=== PATIENT | male | born 1930 | race Caucasian/White ===

== ENCOUNTER → 2017-01-15 | Outpatient (CLI) | payer MEDICARE ==
[~2017-01-15] MED LIST: ASPI-808 PO; ASPI-983 PO; ATOR10TA PO; CLIN-80 PO; CLOP75TA28 PO; CLOP75TA69 PO; CYAN500T2 PO; FAMO20TA5 PO; GABA-488 PO; GBPN300C PO; GLIP-173 PO; GLIP10TA13 PO; HYDR-3714 PO; LISI-552 PO; LISI10TA PO; LRT10T PO; METF-478 PO; METF500T4 PO; METF500T8 PO; MINO50CA2 PO; MTF500T PO; MULT1TAB69 PO; OMG1KC PO
[2017-01-15 10:46] LABS: ALANINE AMINOTRANSFERASE 16 U/L (0-55); ALBUMIN 3.8 GM/DL (3.2-4.5); ANION GAP 8 MMOL/L (5-14); ASPARTATE AMINO TRANSFERASE 13 U/L (5-34); BILIRUBIN,TOTAL 1.1 MG/DL (0.1-1.0); BLOOD UREA NITROGEN 27 MG/DL (7-18); BUN/CREATININE RATIO 28; CALCIUM 9.3 MG/DL (8.5-10.1); CARBON DIOXIDE 27 MMOL/L (21-32); CHLORIDE 104 MMOL/L (98-107); CREATININE SERUM 0.98 MG/DL (0.60-1.30); GFR ESTIMATED > 60; GLUCOSE 98 MG/DL (70-105); POTASSIUM 4.6 MMOL/L (3.6-5.0); SODIUM 139 MMOL/L (135-145); TOTAL PROTEIN 6.8 GM/DL (6.4-8.2)
== END ==
LOC: LAB 09:38
PROVIDERS: ATTEND Family Medicine
DX: E11.621 Type 2 diabetes mellitus with foot ulcer (principal)
CPT/HCPCS: 36415; 80053; 83036

== ENCOUNTER 2017-01-22 09:20 | Outpatient (RCR) | payer MEDICARE ==
[2016-10-28 14:29] LABS: BASOPHILS # (AUTO) 0.2 10^3/uL (0.0-0.1); BASOPHILS % (AUTO) 1 % (0-10); EOSINOPHILS # (AUTO) 0.3 10^3/uL (0.0-0.3); EOSINOPHILS % (AUTO) 2 % (0-10); LYMPHOCYTES # (AUTO) 1.8 X 10^3 (1.0-4.0); LYMPHOCYTES % (AUTO) 14 % (12-44); MEAN CORPUSCULAR HEMOGLOBIN 32 PG (25-34); MEAN CORPUSCULAR HGB CONC 34 G/DL (32-36); MEAN CORPUSCULAR VOLUME 93 FL (80-99); MEAN PLATELET VOLUME 9.4 FL (7.4-10.4); MONOCYTES % (AUTO) 8 % (0-12); NEUTROPHILS # (AUTO) 10.1 X 10^3 (1.8-7.8); NEUTROPHILS % (AUTO) 76 % (42-75); PLATELET COUNT 474 10^3/uL (130-400); RED BLOOD COUNT 5.74 10^6/uL (4.35-5.85); RED CELL DISTRIBUTION WIDTH 14.9 % (10.0-14.5); RETICULOCYTE % 2.19 % (0.50-2.40); WHITE BLOOD COUNT 13.5 10^3/uL (4.3-11.0)
[2016-10-28 15:39] LABS: ALANINE AMINOTRANSFERASE 16 U/L (0-55); ALBUMIN 3.9 G/DL (3.2-4.5); ANION GAP 10 MMOL/L (5-14); ASPARTATE AMINO TRANSFERASE 15 U/L (5-34); BILIRUBIN,TOTAL 0.8 MG/DL (0.1-1.0); BLOOD UREA NITROGEN 21 MG/DL (7-18); BUN/CREATININE RATIO 18; CALCIUM 9.6 MG/DL (8.5-10.1); CARBON DIOXIDE 24 MMOL/L (21-32); CHLORIDE 105 MMOL/L (98-107); CREATININE SERUM 1.14 MG/DL (0.60-1.30); GFR ESTIMATED > 60; GLUCOSE 220 MG/DL (70-105); LACTATE DEHYDROGENASE 264 U/L (125-220); POTASSIUM 4.7 MMOL/L (3.6-5.0); SODIUM 139 MMOL/L (135-145); TOTAL PROTEIN 6.8 G/DL (6.4-8.2)
[2016-10-28 16:43] LABS: %SAT TOTAL IRON BINDING CAPIC 35 % (15-50); TIBC 254 ug/dL (280-380)
[2016-10-29 08:04] LABS: UIBC 166 ug/dL (55-450)
[2016-10-30 07:55] LABS: CLINICAL IND D72.829 D58.2
[2016-11-03 08:03] LABS: JAK2 MUTATION Detected
[2016-11-03 08:12] LABS: BCR ABL FISH QL SEE FOOTNOTE
[2016-11-20 13:54] LABS: BASOPHILS # (AUTO) 0.3 10^3/uL (0.0-0.1); BASOPHILS % (AUTO) 2 % (0-10); EOSINOPHILS # (AUTO) 0.3 10^3/uL (0.0-0.3); EOSINOPHILS % (AUTO) 3 % (0-10); LYMPHOCYTES # (AUTO) 1.9 X 10^3 (1.0-4.0); LYMPHOCYTES % (AUTO) 15 % (12-44); MEAN CORPUSCULAR HEMOGLOBIN 32 PG (25-34); MEAN CORPUSCULAR HGB CONC 34 G/DL (32-36); MEAN CORPUSCULAR VOLUME 94 FL (80-99); MEAN PLATELET VOLUME 9.5 FL (7.4-10.4); MONOCYTES # (AUTO) 1.1 X 10^3 (0.0-1.0); MONOCYTES % (AUTO) 9 % (0-12); NEUTROPHILS # (AUTO) 9.2 X 10^3 (1.8-7.8); NEUTROPHILS % (AUTO) 72 % (42-75); PLATELET COUNT 414 10^3/uL (130-400); RED BLOOD COUNT 5.26 10^6/uL (4.35-5.85); RED CELL DISTRIBUTION WIDTH 14.6 % (10.0-14.5); WHITE BLOOD COUNT 12.9 10^3/uL (4.3-11.0)
[2016-11-20 13:55] LABS: RETICULOCYTE % 2.44 % (0.50-2.40)
[2016-11-20 14:56] LABS: BAND NEUTROPHILS 1 %; BASOPHILS % (MANUAL) 0 %; EOSINOPHILS % (MANUAL) 3 %; LYMPHOCYTES % (MANUAL) 12 %; NEUTROPHILS % (MANUAL) 78 %; REACTIVE LYMPHOCYTES 1 %
[2016-12-03 13:32] LABS: BASOPHILS # (AUTO) 0.2 10^3/uL (0.0-0.1); BASOPHILS % (AUTO) 2 % (0-10); EOSINOPHILS # (AUTO) 0.3 10^3/uL (0.0-0.3); EOSINOPHILS % (AUTO) 3 % (0-10); LYMPHOCYTES # (AUTO) 1.9 X 10^3 (1.0-4.0); LYMPHOCYTES % (AUTO) 16 % (12-44); MEAN CORPUSCULAR HEMOGLOBIN 31 PG (25-34); MEAN CORPUSCULAR HGB CONC 33 G/DL (32-36); MEAN CORPUSCULAR VOLUME 94 FL (80-99); MEAN PLATELET VOLUME 9.7 FL (7.4-10.4); MONOCYTES % (AUTO) 8 % (0-12); NEUTROPHILS # (AUTO) 8.6 X 10^3 (1.8-7.8); NEUTROPHILS % (AUTO) 71 % (42-75); PLATELET COUNT 387 10^3/uL (130-400); RED BLOOD COUNT 5.59 10^6/uL (4.35-5.85); RED CELL DISTRIBUTION WIDTH 14.7 % (10.0-14.5); RETICULOCYTE % 2.76 % (0.50-2.40)
[2016-12-10 08:41] LABS: BASOPHILS # (AUTO) 0.2 10^3/uL (0.0-0.1); BASOPHILS % (AUTO) 2 % (0-10); EOSINOPHILS # (AUTO) 0.3 10^3/uL (0.0-0.3); EOSINOPHILS % (AUTO) 2 % (0-10); LYMPHOCYTES # (AUTO) 2.1 X 10^3 (1.0-4.0); LYMPHOCYTES % (AUTO) 17 % (12-44); MEAN CORPUSCULAR HEMOGLOBIN 32 PG (25-34); MEAN CORPUSCULAR HGB CONC 34 G/DL (32-36); MEAN CORPUSCULAR VOLUME 94 FL (80-99); MEAN PLATELET VOLUME 9.4 FL (7.4-10.4); MONOCYTES # (AUTO) 0.9 X 10^3 (0.0-1.0); MONOCYTES % (AUTO) 8 % (0-12); NEUTROPHILS # (AUTO) 8.7 X 10^3 (1.8-7.8); NEUTROPHILS % (AUTO) 72 % (42-75); PLATELET COUNT 404 10^3/uL (130-400); RED BLOOD COUNT 5.46 10^6/uL (4.35-5.85); RED CELL DISTRIBUTION WIDTH 14.9 % (10.0-14.5); WHITE BLOOD COUNT 12.1 10^3/uL (4.3-11.0)
[2016-12-17 09:55] LABS: BASOPHILS # (AUTO) 0.2 10^3/uL (0.0-0.1); BASOPHILS % (AUTO) 2 % (0-10); EOSINOPHILS # (AUTO) 0.2 10^3/uL (0.0-0.3); EOSINOPHILS % (AUTO) 2 % (0-10); LYMPHOCYTES # (AUTO) 1.6 X 10^3 (1.0-4.0); LYMPHOCYTES % (AUTO) 13 % (12-44); MEAN CORPUSCULAR HEMOGLOBIN 32 PG (25-34); MEAN CORPUSCULAR HGB CONC 34 G/DL (32-36); MEAN CORPUSCULAR VOLUME 95 FL (80-99); MEAN PLATELET VOLUME 9.4 FL (7.4-10.4); MONOCYTES # (AUTO) 0.8 X 10^3 (0.0-1.0); MONOCYTES % (AUTO) 7 % (0-12); NEUTROPHILS # (AUTO) 9.3 X 10^3 (1.8-7.8); NEUTROPHILS % (AUTO) 77 % (42-75); PLATELET COUNT 341 10^3/uL (130-400); RED BLOOD COUNT 5.35 10^6/uL (4.35-5.85); RED CELL DISTRIBUTION WIDTH 15.4 % (10.0-14.5); WHITE BLOOD COUNT 12.1 10^3/uL (4.3-11.0)
[2016-12-24 10:04] LABS: BASOPHILS # (AUTO) 0.2 10^3/uL (0.0-0.1); BASOPHILS % (AUTO) 2 % (0-10); EOSINOPHILS # (AUTO) 0.3 10^3/uL (0.0-0.3); EOSINOPHILS % (AUTO) 3 % (0-10); LYMPHOCYTES # (AUTO) 1.7 X 10^3 (1.0-4.0); LYMPHOCYTES % (AUTO) 18 % (12-44); MEAN CORPUSCULAR HEMOGLOBIN 33 PG (25-34); MEAN CORPUSCULAR HGB CONC 34 G/DL (32-36); MEAN CORPUSCULAR VOLUME 96 FL (80-99); MONOCYTES # (AUTO) 0.6 X 10^3 (0.0-1.0); MONOCYTES % (AUTO) 7 % (0-12); NEUTROPHILS # (AUTO) 6.6 X 10^3 (1.8-7.8); NEUTROPHILS % (AUTO) 70 % (42-75); PLATELET COUNT 313 10^3/uL (130-400); RED BLOOD COUNT 5.33 10^6/uL (4.35-5.85); RED CELL DISTRIBUTION WIDTH 16.6 % (10.0-14.5); WHITE BLOOD COUNT 9.3 10^3/uL (4.3-11.0)
[2017-01-01 15:02] LABS: BASOPHILS # (AUTO) 0.2 10^3/uL (0.0-0.1); BASOPHILS % (AUTO) 2 % (0-10); EOSINOPHILS # (AUTO) 0.2 10^3/uL (0.0-0.3); EOSINOPHILS % (AUTO) 2 % (0-10); LYMPHOCYTES % (AUTO) 22 % (12-44); MEAN CORPUSCULAR HEMOGLOBIN 32 PG (25-34); MEAN CORPUSCULAR HGB CONC 34 G/DL (32-36); MEAN CORPUSCULAR VOLUME 96 FL (80-99); MONOCYTES # (AUTO) 0.7 X 10^3 (0.0-1.0); MONOCYTES % (AUTO) 8 % (0-12); NEUTROPHILS # (AUTO) 5.9 X 10^3 (1.8-7.8); NEUTROPHILS % (AUTO) 66 % (42-75); PLATELET COUNT 248 10^3/uL (130-400); RED BLOOD COUNT 5.34 10^6/uL (4.35-5.85); RED CELL DISTRIBUTION WIDTH 18.1 % (10.0-14.5); RETICULOCYTE % 1.47 % (0.50-2.40)
[2017-01-01 15:28] LABS: ANION GAP 7 MMOL/L (5-14); BLOOD UREA NITROGEN 20 MG/DL (7-18); BUN/CREATININE RATIO 22; CALCIUM 9.4 MG/DL (8.5-10.1); CARBON DIOXIDE 25 MMOL/L (21-32); CHLORIDE 106 MMOL/L (98-107); CREATININE SERUM 0.93 MG/DL (0.60-1.30); GFR ESTIMATED > 60; GLUCOSE 197 MG/DL (70-105); POTASSIUM 4.5 MMOL/L (3.6-5.0); SODIUM 138 MMOL/L (135-145); URIC ACID 4.8 MG/DL (2.6-7.2)
[2017-01-08 10:20] LABS: BASOPHILS # (AUTO) 0.2 10^3/uL (0.0-0.1); BASOPHILS % (AUTO) 2 % (0-10); EOSINOPHILS # (AUTO) 0.2 10^3/uL (0.0-0.3); EOSINOPHILS % (AUTO) 2 % (0-10); LYMPHOCYTES # (AUTO) 1.8 X 10^3 (1.0-4.0); LYMPHOCYTES % (AUTO) 24 % (12-44); MEAN CORPUSCULAR HEMOGLOBIN 33 PG (25-34); MEAN CORPUSCULAR HGB CONC 34 G/DL (32-36); MEAN CORPUSCULAR VOLUME 98 FL (80-99); MEAN PLATELET VOLUME 9.1 FL (7.4-10.4); MONOCYTES # (AUTO) 0.6 X 10^3 (0.0-1.0); MONOCYTES % (AUTO) 7 % (0-12); NEUTROPHILS % (AUTO) 65 % (42-75); PLATELET COUNT 241 10^3/uL (130-400); RED BLOOD COUNT 4.97 10^6/uL (4.35-5.85); RED CELL DISTRIBUTION WIDTH 18.7 % (10.0-14.5); WHITE BLOOD COUNT 7.8 10^3/uL (4.3-11.0)
[2017-01-15 09:37] LABS: BASOPHILS # (AUTO) 0.1 10^3/uL (0.0-0.1); BASOPHILS % (AUTO) 2 % (0-10); EOSINOPHILS # (AUTO) 0.1 10^3/uL (0.0-0.3); EOSINOPHILS % (AUTO) 2 % (0-10); LYMPHOCYTES % (AUTO) 28 % (12-44); MEAN CORPUSCULAR HEMOGLOBIN 35 PG (25-34); MEAN CORPUSCULAR HGB CONC 35 G/DL (32-36); MEAN CORPUSCULAR VOLUME 98 FL (80-99); MEAN PLATELET VOLUME 9.2 FL (7.4-10.4); MONOCYTES # (AUTO) 0.3 X 10^3 (0.0-1.0); MONOCYTES % (AUTO) 5 % (0-12); NEUTROPHILS # (AUTO) 4.4 X 10^3 (1.8-7.8); NEUTROPHILS % (AUTO) 63 % (42-75); PLATELET COUNT 177 10^3/uL (130-400); RED BLOOD COUNT 4.58 10^6/uL (4.35-5.85); RED CELL DISTRIBUTION WIDTH 18.7 % (10.0-14.5); WHITE BLOOD COUNT 6.9 10^3/uL (4.3-11.0)
[2017-01-22 09:34] LABS: BASOPHILS # (AUTO) 0.1 10^3/uL (0.0-0.1); BASOPHILS % (AUTO) 1 % (0-10); EOSINOPHILS # (AUTO) 0.1 10^3/uL (0.0-0.3); EOSINOPHILS % (AUTO) 2 % (0-10); LYMPHOCYTES # (AUTO) 1.3 X 10^3 (1.0-4.0); LYMPHOCYTES % (AUTO) 23 % (12-44); MEAN CORPUSCULAR HEMOGLOBIN 35 PG (25-34); MEAN CORPUSCULAR HGB CONC 36 G/DL (32-36); MEAN CORPUSCULAR VOLUME 98 FL (80-99); MEAN PLATELET VOLUME 9.8 FL (7.4-10.4); MONOCYTES # (AUTO) 0.2 X 10^3 (0.0-1.0); MONOCYTES % (AUTO) 3 % (0-12); NEUTROPHILS # (AUTO) 3.8 X 10^3 (1.8-7.8); NEUTROPHILS % (AUTO) 71 % (42-75); PLATELET COUNT 93 10^3/uL (130-400); RED BLOOD COUNT 4.16 10^6/uL (4.35-5.85); RED CELL DISTRIBUTION WIDTH 18.3 % (10.0-14.5); WHITE BLOOD COUNT 5.4 10^3/uL (4.3-11.0)
== END 2017-01-26 | disposition home or self-care (01) ==
LOC: ONC 09:20
PROVIDERS: ATTEND Internal Medicine Hematology & Oncology
DX: D72.829 Elevated white blood cell count, unspecified (principal); D58.2 Other hemoglobinopathies; E11.9 Type 2 diabetes mellitus without complications; Z79.84 Long term (current) use of oral hypoglycemic drugs
CPT/HCPCS: 36415; 38221; 80048; 80053; 81270; 82668; 82728; 83540; 83615; 84550; 85007; 85025; 85027; 85045; 88184; 88185; 88305; 88311; 88313; 88368; 88369; 99195; 99213; 99214

== ENCOUNTER 2017-03-19 09:25 | Outpatient (RCR) | payer MEDICARE ==
[2017-01-29 09:53] LABS: BASOPHILS % (AUTO) 1 % (0-10); EOSINOPHILS # (AUTO) 0.1 10^3/uL (0.0-0.3); EOSINOPHILS % (AUTO) 3 % (0-10); LYMPHOCYTES # (AUTO) 1.3 X 10^3 (1.0-4.0); LYMPHOCYTES % (AUTO) 33 % (12-44); MEAN CORPUSCULAR HEMOGLOBIN 35 PG (25-34); MEAN CORPUSCULAR HGB CONC 35 G/DL (32-36); MEAN CORPUSCULAR VOLUME 99 FL (80-99); MEAN PLATELET VOLUME 8.7 FL (7.4-10.4); MONOCYTES # (AUTO) 0.2 X 10^3 (0.0-1.0); MONOCYTES % (AUTO) 4 % (0-12); NEUTROPHILS # (AUTO) 2.3 X 10^3 (1.8-7.8); NEUTROPHILS % (AUTO) 60 % (42-75); PLATELET COUNT 63 10^3/uL (130-400); RED BLOOD COUNT 3.56 10^6/uL (4.35-5.85); WHITE BLOOD COUNT 3.9 10^3/uL (4.3-11.0)
[2017-02-06 10:59] LABS: BASOPHILS % (AUTO) 0 % (0-10); EOSINOPHILS # (AUTO) 0.1 10^3/uL (0.0-0.3); EOSINOPHILS % (AUTO) 2 % (0-10); LYMPHOCYTES # (AUTO) 1.4 X 10^3 (1.0-4.0); LYMPHOCYTES % (AUTO) 36 % (12-44); MEAN CORPUSCULAR HEMOGLOBIN 35 PG (25-34); MEAN CORPUSCULAR HGB CONC 35 G/DL (32-36); MEAN CORPUSCULAR VOLUME 101 FL (80-99); MEAN PLATELET VOLUME 8.5 FL (7.4-10.4); MONOCYTES # (AUTO) 0.2 X 10^3 (0.0-1.0); MONOCYTES % (AUTO) 5 % (0-12); NEUTROPHILS # (AUTO) 2.2 X 10^3 (1.8-7.8); NEUTROPHILS % (AUTO) 57 % (42-75); PLATELET COUNT 116 10^3/uL (130-400); RED CELL DISTRIBUTION WIDTH 18.5 % (10.0-14.5); WHITE BLOOD COUNT 3.9 10^3/uL (4.3-11.0)
[2017-02-06 11:21] LABS: ALANINE AMINOTRANSFERASE 25 U/L (0-55); ALBUMIN 3.5 GM/DL (3.2-4.5); ANION GAP 7 MMOL/L (5-14); ASPARTATE AMINO TRANSFERASE 15 U/L (5-34); BILIRUBIN,TOTAL 0.7 MG/DL (0.1-1.0); BLOOD UREA NITROGEN 18 MG/DL (7-18); BUN/CREATININE RATIO 18; CALCIUM 8.9 MG/DL (8.5-10.1); CARBON DIOXIDE 26 MMOL/L (21-32); CHLORIDE 107 MMOL/L (98-107); GFR ESTIMATED > 60; GLUCOSE 158 MG/DL (70-105); LACTATE DEHYDROGENASE 166 U/L (125-220); SODIUM 140 MMOL/L (135-145); TOTAL PROTEIN 6.2 GM/DL (6.4-8.2)
[2017-02-12 10:03] LABS: BASOPHILS % (AUTO) 0 % (0-10); EOSINOPHILS # (AUTO) 0.1 10^3/uL (0.0-0.3); EOSINOPHILS % (AUTO) 1 % (0-10); LYMPHOCYTES # (AUTO) 1.5 X 10^3 (1.0-4.0); LYMPHOCYTES % (AUTO) 38 % (12-44); MEAN CORPUSCULAR HEMOGLOBIN 36 PG (25-34); MEAN CORPUSCULAR HGB CONC 36 G/DL (32-36); MEAN CORPUSCULAR VOLUME 102 FL (80-99); MEAN PLATELET VOLUME 7.9 FL (7.4-10.4); MONOCYTES # (AUTO) 0.4 X 10^3 (0.0-1.0); MONOCYTES % (AUTO) 11 % (0-12); NEUTROPHILS % (AUTO) 50 % (42-75); PLATELET COUNT 198 10^3/uL (130-400); RED BLOOD COUNT 3.19 10^6/uL (4.35-5.85); RED CELL DISTRIBUTION WIDTH 19.2 % (10.0-14.5)
[2017-02-19 10:14] LABS: BASOPHILS % (AUTO) 0 % (0-10); EOSINOPHILS % (AUTO) 1 % (0-10); LYMPHOCYTES # (AUTO) 1.6 X 10^3 (1.0-4.0); LYMPHOCYTES % (AUTO) 34 % (12-44); MEAN CORPUSCULAR HEMOGLOBIN 37 PG (25-34); MEAN CORPUSCULAR HGB CONC 35 G/DL (32-36); MEAN CORPUSCULAR VOLUME 104 FL (80-99); MEAN PLATELET VOLUME 8.7 FL (7.4-10.4); MONOCYTES # (AUTO) 0.5 X 10^3 (0.0-1.0); MONOCYTES % (AUTO) 12 % (0-12); NEUTROPHILS # (AUTO) 2.5 X 10^3 (1.8-7.8); NEUTROPHILS % (AUTO) 54 % (42-75); PLATELET COUNT 208 10^3/uL (130-400); RED BLOOD COUNT 3.05 10^6/uL (4.35-5.85); WHITE BLOOD COUNT 4.7 10^3/uL (4.3-11.0)
[2017-02-26 10:02] LABS: BASOPHILS % (AUTO) 0 % (0-10); EOSINOPHILS # (AUTO) 0.1 10^3/uL (0.0-0.3); EOSINOPHILS % (AUTO) 1 % (0-10); LYMPHOCYTES # (AUTO) 1.9 X 10^3 (1.0-4.0); LYMPHOCYTES % (AUTO) 31 % (12-44); MEAN CORPUSCULAR HEMOGLOBIN 37 PG (25-34); MEAN CORPUSCULAR HGB CONC 35 G/DL (32-36); MEAN CORPUSCULAR VOLUME 106 FL (80-99); MEAN PLATELET VOLUME 9.2 FL (7.4-10.4); MONOCYTES # (AUTO) 0.7 X 10^3 (0.0-1.0); MONOCYTES % (AUTO) 11 % (0-12); NEUTROPHILS # (AUTO) 3.6 X 10^3 (1.8-7.8); NEUTROPHILS % (AUTO) 57 % (42-75); PLATELET COUNT 203 10^3/uL (130-400); RED CELL DISTRIBUTION WIDTH 19.4 % (10.0-14.5); WHITE BLOOD COUNT 6.3 10^3/uL (4.3-11.0)
[2017-03-11 15:36] LABS: BASOPHILS % (AUTO) 0 % (0-10); EOSINOPHILS # (AUTO) 0.1 10^3/uL (0.0-0.3); EOSINOPHILS % (AUTO) 1 % (0-10); LYMPHOCYTES # (AUTO) 1.9 X 10^3 (1.0-4.0); LYMPHOCYTES % (AUTO) 27 % (12-44); MEAN CORPUSCULAR HEMOGLOBIN 39 PG (25-34); MEAN CORPUSCULAR HGB CONC 35 G/DL (32-36); MEAN CORPUSCULAR VOLUME 109 FL (80-99); MEAN PLATELET VOLUME 8.8 FL (7.4-10.4); MONOCYTES # (AUTO) 0.7 X 10^3 (0.0-1.0); MONOCYTES % (AUTO) 11 % (0-12); NEUTROPHILS # (AUTO) 4.2 X 10^3 (1.8-7.8); NEUTROPHILS % (AUTO) 61 % (42-75); PLATELET COUNT 158 10^3/uL (130-400); RED BLOOD COUNT 3.19 10^6/uL (4.35-5.85); RED CELL DISTRIBUTION WIDTH 17.2 % (10.0-14.5)
[2017-03-11 15:53] LABS: ALANINE AMINOTRANSFERASE 18 U/L (0-55); ALBUMIN 3.9 GM/DL (3.2-4.5); ANION GAP 5 MMOL/L (5-14); ASPARTATE AMINO TRANSFERASE 12 U/L (5-34); BILIRUBIN,TOTAL 0.8 MG/DL (0.1-1.0); BLOOD UREA NITROGEN 25 MG/DL (7-18); BUN/CREATININE RATIO 23; CALCIUM 9.2 MG/DL (8.5-10.1); CARBON DIOXIDE 28 MMOL/L (21-32); CHLORIDE 107 MMOL/L (98-107); CREATININE SERUM 1.08 MG/DL (0.60-1.30); GFR ESTIMATED > 60; GLUCOSE 190 MG/DL (70-105); LACTATE DEHYDROGENASE 165 U/L (125-220); POTASSIUM 5.1 MMOL/L (3.6-5.0); SODIUM 140 MMOL/L (135-145); TOTAL PROTEIN 6.9 GM/DL (6.4-8.2)
[2017-03-19 09:39] LABS: BASOPHILS % (AUTO) 0 % (0-10); EOSINOPHILS # (AUTO) 0.1 10^3/uL (0.0-0.3); EOSINOPHILS % (AUTO) 2 % (0-10); LYMPHOCYTES % (AUTO) 28 % (12-44); MEAN CORPUSCULAR HEMOGLOBIN 39 PG (25-34); MEAN CORPUSCULAR HGB CONC 35 G/DL (32-36); MEAN CORPUSCULAR VOLUME 112 FL (80-99); MEAN PLATELET VOLUME 8.5 FL (7.4-10.4); MONOCYTES # (AUTO) 0.6 X 10^3 (0.0-1.0); MONOCYTES % (AUTO) 9 % (0-12); NEUTROPHILS # (AUTO) 4.3 X 10^3 (1.8-7.8); NEUTROPHILS % (AUTO) 61 % (42-75); PLATELET COUNT 164 10^3/uL (130-400); RED BLOOD COUNT 2.94 10^6/uL (4.35-5.85); RED CELL DISTRIBUTION WIDTH 15.4 % (10.0-14.5); WHITE BLOOD COUNT 7.1 10^3/uL (4.3-11.0)
== END 2017-03-28 | disposition home or self-care (01) ==
LOC: ONC 09:25
PROVIDERS: ATTEND Internal Medicine Hematology & Oncology
DX: D45 Polycythemia vera (principal); E11.9 Type 2 diabetes mellitus without complications; Z79.84 Long term (current) use of oral hypoglycemic drugs; Z79.899 Other long term (current) drug therapy
CPT/HCPCS: 36415; 80053; 83615; 85025; 99213

== ENCOUNTER 2017-06-25 09:33 | Outpatient (RCR) | payer MEDICARE ==
[2017-04-02 09:51] LABS: BASOPHILS % (AUTO) 0 % (0-10); EOSINOPHILS # (AUTO) 0.1 10^3/uL (0.0-0.3); EOSINOPHILS % (AUTO) 2 % (0-10); HEMATOCRIT 34 % (40-54); LYMPHOCYTES % (AUTO) 29 % (12-44); MEAN CORPUSCULAR HEMOGLOBIN 40 PG (25-34); MEAN CORPUSCULAR HGB CONC 36 G/DL (32-36); MEAN CORPUSCULAR VOLUME 113 FL (80-99); MONOCYTES # (AUTO) 0.6 X 10^3 (0.0-1.0); MONOCYTES % (AUTO) 8 % (0-12); NEUTROPHILS # (AUTO) 4.2 X 10^3 (1.8-7.8); NEUTROPHILS % (AUTO) 61 % (42-75); PLATELET COUNT 169 10^3/uL (130-400); RED BLOOD COUNT 2.99 10^6/uL (4.35-5.85); RED CELL DISTRIBUTION WIDTH 12.5 % (10.0-14.5)
[2017-04-30 09:46] LABS: BASOPHILS % (AUTO) 1 % (0-10); EOSINOPHILS # (AUTO) 0.1 10^3/uL (0.0-0.3); EOSINOPHILS % (AUTO) 1 % (0-10); HEMATOCRIT 37 % (40-54); HEMOGLOBIN 13.4 G/DL (13.3-17.7); LYMPHOCYTES # (AUTO) 1.8 X 10^3 (1.0-4.0); LYMPHOCYTES % (AUTO) 27 % (12-44); MEAN CORPUSCULAR HEMOGLOBIN 40 PG (25-34); MEAN CORPUSCULAR HGB CONC 36 G/DL (32-36); MEAN CORPUSCULAR VOLUME 110 FL (80-99); MONOCYTES # (AUTO) 0.6 X 10^3 (0.0-1.0); MONOCYTES % (AUTO) 9 % (0-12); NEUTROPHILS % (AUTO) 62 % (42-75); PLATELET COUNT 207 10^3/uL (130-400); RED BLOOD COUNT 3.35 10^6/uL (4.35-5.85); RED CELL DISTRIBUTION WIDTH 12.7 % (10.0-14.5); WHITE BLOOD COUNT 6.5 10^3/uL (4.3-11.0)
[2017-05-28 11:13] LABS: BASOPHILS % (AUTO) 0 % (0-10); EOSINOPHILS # (AUTO) 0.1 10^3/uL (0.0-0.3); EOSINOPHILS % (AUTO) 2 % (0-10); HEMATOCRIT 38 % (40-54); HEMOGLOBIN 13.6 G/DL (13.3-17.7); LYMPHOCYTES # (AUTO) 2.4 X 10^3 (1.0-4.0); LYMPHOCYTES % (AUTO) 32 % (12-44); MEAN CORPUSCULAR HEMOGLOBIN 39 PG (25-34); MEAN CORPUSCULAR HGB CONC 36 G/DL (32-36); MEAN CORPUSCULAR VOLUME 108 FL (80-99); MEAN PLATELET VOLUME 9.1 FL (7.4-10.4); MONOCYTES # (AUTO) 0.8 X 10^3 (0.0-1.0); MONOCYTES % (AUTO) 10 % (0-12); NEUTROPHILS # (AUTO) 4.2 X 10^3 (1.8-7.8); NEUTROPHILS % (AUTO) 56 % (42-75); PLATELET COUNT 170 10^3/uL (130-400); RED BLOOD COUNT 3.49 10^6/uL (4.35-5.85); RED CELL DISTRIBUTION WIDTH 13.4 % (10.0-14.5); WHITE BLOOD COUNT 7.5 10^3/uL (4.3-11.0)
[2017-05-28 11:30] LABS: ALANINE AMINOTRANSFERASE 19 U/L (0-55); ALBUMIN 3.9 GM/DL (3.2-4.5); ALKALINE PHOSPHATASE 46 U/L (40-136); BILIRUBIN,TOTAL 0.7 MG/DL (0.1-1.0); BUN/CREATININE RATIO 24; CALCIUM 9.5 MG/DL (8.5-10.1); CARBON DIOXIDE 27 MMOL/L (21-32); CHLORIDE 104 MMOL/L (98-107); CREATININE SERUM 0.93 MG/DL (0.60-1.30); GFR ESTIMATED > 60; GLUCOSE 105 MG/DL (70-105); POTASSIUM 4.7 MMOL/L (3.6-5.0); SODIUM 139 MMOL/L (135-145); TOTAL PROTEIN 6.9 GM/DL (6.4-8.2)
[2017-06-25 09:43] LABS: BASOPHILS % (AUTO) 0 % (0-10); EOSINOPHILS # (AUTO) 0.1 10^3/uL (0.0-0.3); EOSINOPHILS % (AUTO) 2 % (0-10); HEMATOCRIT 38 % (40-54); HEMOGLOBIN 13.8 G/DL (13.3-17.7); LYMPHOCYTES # (AUTO) 2.4 X 10^3 (1.0-4.0); LYMPHOCYTES % (AUTO) 29 % (12-44); MEAN CORPUSCULAR HEMOGLOBIN 39 PG (25-34); MEAN CORPUSCULAR HGB CONC 36 G/DL (32-36); MEAN CORPUSCULAR VOLUME 108 FL (80-99); MONOCYTES # (AUTO) 0.8 X 10^3 (0.0-1.0); MONOCYTES % (AUTO) 9 % (0-12); NEUTROPHILS % (AUTO) 60 % (42-75); PLATELET COUNT 190 10^3/uL (130-400); RED BLOOD COUNT 3.51 10^6/uL (4.35-5.85); RED CELL DISTRIBUTION WIDTH 13.4 % (10.0-14.5); WHITE BLOOD COUNT 8.3 10^3/uL (4.3-11.0)
== END 2017-07-01 | disposition home or self-care (01) ==
LOC: ONC 09:33
PROVIDERS: ATTEND Internal Medicine Hematology & Oncology
DX: D45 Polycythemia vera (principal); E11.9 Type 2 diabetes mellitus without complications; Z79.84 Long term (current) use of oral hypoglycemic drugs; Z79.899 Other long term (current) drug therapy
CPT/HCPCS: 36415; 80053; 83615; 85025; 99213

== ENCOUNTER 2017-07-08 11:29 | Outpatient (CLI) | payer MEDICARE ==
[~2017-07-08] VITALS: Ht 182.9 cm; Wt 106.1 kg
[2017-07-08 11:41] VITALS: BP 96/57
[2017-07-08] MEDS ORDERED: GABA-490 PO (11:59)
[2017-07-08] MEDS ORDERED: HYDR500C2 PO (11:59)
== END 2017-07-08 11:55 | disposition home or self-care (01) ==
LOC: PREOP 11:29
PROVIDERS: ATTEND Podiatrist Foot & Ankle Surgery
DX: Z01.818 Encounter for other preprocedural examination (principal); Z11.2 Encounter for screening for other bacterial diseases; L97.529 Non-pressure chronic ulcer of other part of left foot with unspecified severity; M21.6X2 Other acquired deformities of left foot
CPT/HCPCS: 87081

== ENCOUNTER 2017-07-20 08:07 | Day surgery (SDC) | payer MEDICARE ==
[~2017-07-20] VITALS: Ht 182.9 cm; Wt 106.1 kg
[~2017-07-20 08:07] MED LIST changes: +GABA-490 PO; +HYDR500C2 PO
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
[2017-07-20] MEDS ORDERED: BUPIVACAINE 0.5% 30 ML (SENSORCAINE) VIAL ONE (08:23)
[2017-07-20] MEDS ORDERED: DEXAMETHASONE 10 MG/ML (DECADRON) 1 ML VIAL ONE (08:23)
[2017-07-20] MEDS ORDERED: VANCOMYCIN 1 GM/NS 250 ML IVPB IV ONE ×2 (08:30)
[2017-07-20] MEDS ORDERED: CATHETER FLUSH 10 ML SYR IV PRN (08:30)
[2017-07-20] MEDS ORDERED: LACTATED RINGERS 1,000 ML IV PRN (08:59)
[2017-07-20] MEDS ORDERED: VANCOMYCIN INJECTION 1,000 MG in NS (IVPB) 250 ML IV ONE (09:00)
[2017-07-20 09:05] VITALS: BP 117/79
[2017-07-20] MEDS ORDERED: fentaNYL INJECTION 100 MCG/2 ML AMP ONE (09:15)
--- NOTE | 2017-07-20 09:21 | Progress Note-Pre Operative ---
Pre-Operative Progress Note H&P Reviewed The H&P was reviewed, patient examined and no changes noted. Date Seen by Provider: Jul 20, 2017 Time Seen by Provider: 09:20 Date H&P Reviewed: Jul 20, 2017 Time H&P Reviewed: 09:20 Pre-Operative Diagnosis: Exostosis left 3rd metatarsal, Chronic Ulceration left foot ABBY MASCORRO DPM Jul 20, 2017 9:21 am
[2017-07-20] MEDS ORDERED: LIDOCAINE 1% INJ 20 ML (XYLOCAINE) VIAL ONE (09:30)
[2017-07-20] MEDS ORDERED: SILVER SULFADIAZINE 50 GM CREAM ONE (09:38)
[2017-07-20] MEDS ORDERED: ONDANSETRON 4 MG/2 ML (SDV) Z0FRAN ONE (10:07)
[2017-07-20] MEDS ORDERED: PROPOFOL INJECTION 50 ML IV ONE (10:07)
[2017-07-20] MEDS ORDERED: LACTATED RINGERS 1,000 ML IV SCH (10:11)
--- NOTE | 2017-07-20 10:11 | Progress Note-Post Operative ---
Post-Operative Progess Note Surgeon (s)/Instrument Technician Apprentice (s) Surgeon ABBY MASCORRO DPM Instrument Technician Apprentice: none Pre-Operative Diagnosis Exostosis left 3rd metatarsal, Chronic Ulceration left foot Post-Operative Diagnosis Same Procedure & Operative Findings Date of Procedure 07/20/17 Procedure Performed/Findings Exostectomy left foot Anesthesia Type MAC Estimated Blood Loss Estimated blood loss (mL): Minimal Specimens/Packing Specimens Removed None ABBY MASCORRO DPM Jul 20, 2017 10:11 am
[2017-07-20] MEDS ORDERED: HYDROcodone/APAP 5 MG/325 MG (LORTAB) TAB PO PRN (10:15)
[2017-07-20] MEDS ORDERED: ONDANSETRON 4 MG/2 ML (SDV) Z0FRAN IVP PRN (10:30)
[2017-07-20] MEDS ORDERED: morphine INJ 10 MG/ML 1ML (SYR OR VIAL) IVP PRN (10:30)
[2017-07-20] MEDS ORDERED: MEPERIDINE (DEMEROL) INJ 50 MG/ML IVP PRN (10:30)
[2017-07-20 10:40] VITALS: BP 124/85
[2017-07-20] MEDS ORDERED: SILV20CR14 TP (10:48)
[2017-07-20 11:10] VITALS: BP 122/95
[2017-07-20 11:30] VITALS: BP 122/95
--- NOTE | 2017-07-20 11:43 | Physical Therapy Ortho Eval ---
PT Orthopedic Evaluation Type of Surgery Prior Level of Function Current Living Status: Spouse Locomotion (Upon Admit): Front Wheeled Walker Established Durable Medical Eq: Front Wheeled Walker Subjective Subjective PT discussed with patient and family on PWB left foot. Entry Into Home: Stairs With Railing Steps Into Home: 4 Steps Accessories: Railing Present Motor Control Motor Control: Motor Control WNL ROM ROM: WFL, except focal deficit Strength Strength: WFL Transfer Transfers (B, C, W/C) (FIM): 6 Gait Gait Assistive Device: FWW Right Lower Extremity: Right Weight Bearing Status RLE: Full Weight Bearing Left Lower Extremity: Left Weight Bearing Status LLE: Partial Weight Bearing Difficulty maintaining PWB left foot. Boot Dr. Chung issued patient is too small with dressing in place. Dr. Chung called and PT placed a surgical shoe on patient and instructed family to place boot on patient after dressing is removed. Gait (FIM): 2 Distance (FIM): 1=045-23 ft Distance: 75' Gait Level of Assist: 5 Summary/Comments difficulty maintaining PWB left foot, trunk flexed posture with FWW with ambulation Treatment Rendered Treatment: Gait Train, Step Train Assessment/Goals Goal Time Frame: 1 Visit Understands HEP: Yes Safe Ambulation: Yes Plan Treatment Plan: Discharge PT/Family Agrees to Plan: Yes Time Time In: 1102 Time Out: 1125 Total Billed Treatment Time: 23 Billed Treatment Time 1 visit EVHighC 23 min PT/OT Therapy GCodes Therapy Functional Limitation: Physical Therapy Test(s)/Tool used to determine: Level of Assistance Scale Functional Limitation-Current Charge Code: MOBCUR Modifier: CI Functional Limitation-Goal Charge Code: MOBGOAL Modifier: CI Functional Limitation-D/C Charge Codes: MOBDC Modifier: CI LEWIS OROZCO PT Jul 20, 2017 11:43
--- NOTE | 2017-07-20 13:06 | OPERATIVE REPORT ---
DATE OF SERVICE: 07/20/2017 SURGEON: Ling Mascorro DPM PREOPERATIVE DIAGNOSES: 1. Exostosis, left third metatarsal. 2. History of transmetatarsal amputation, left foot. 3. Chronic ulceration, left third metatarsal area. 4. Equinus. POSTOPERATIVE DIAGNOSES: 1. Exostosis, left third metatarsal. 2. History of transmetatarsal amputation, left foot. 3. Chronic ulceration, left third metatarsal area. 4. Equinus. PROCEDURE: Exostectomy, left third metatarsal. WOUND CLASS: Clean. ANESTHESIA: Monitored anesthesia care. HEMOSTASIS: Pneumatic ankle tourniquet at 250 mmHg. INDICATION: This 87-year-old male complains of a chronic ulceration to the left foot. Conservative therapy has met with unsatisfactory results and the patient is agreeable surgical intervention after risks and complications were discussed at length. I highly encouraged the patient to have a tendo Achilles lengthening, which he refused. He is only agreeable to reduction of the bony prominence to the third metatarsal of the left forefoot. No guarantees were extended to the patient and he is willing to proceed. He understands that there is a chance of continued ulceration, possibility of loss of limb or life and he is willing to proceed. DESCRIPTION OF PROCEDURE: The patient was brought back to the operative table, placed in secure supine position. Local anesthetic was then induced to the left forefoot utilizing 10 mL of 1:1 mixture of 1% Xylocaine, 0.5% Marcaine injected into the anterior aspect of the remaining left forefoot. A pneumatic ankle tourniquet was placed on the left lower extremity over several layers of padding. The left foot was then prepped and draped in normal sterile manner. Appropriate timeout was performed. Attention was then directed to the anterior aspect of the remaining left forefoot with a 2.5 cm medial to lateral incision that was bluntly dissected to the inferior aspect of the third metatarsal area. Next, utilizing power sagittal saw, inferior aspect of the bony prominence was reduced. Followed by osteotome and mallet and completed the exostectomy with a power bur. The wound was flushed with copious amounts of normal saline. Closure was then performed in layers. A deep closure was performed with 3-0 Vicryl, superficial with 4-0 Vicryl, skin closure with 4-0 Prolene in alternating simple interrupted and horizontal mattress type stitch. Postoperative dressing consisted of Betadine soaked Adaptic, sterile 4 x 4, sterile Kerlix. A Silvadene was applied to the inferior wound with gauze secured with a Coban wrap. The patient tolerated the anesthesia and procedure well and was transferred from the operating room to the recovery area with vital signs stable and vascular status intact to the left foot. Postop instructions were given to the patient. He is to be partial weightbearing with use of a walker. We will see the patient in my office in 1 week postop. Job ID: [id number] DocumentID: [id number] Dictated Date: 07/20/2017 10:19:47 Restaurant Bartender Date: 07/20/2017 13:06:09 Dictated By: LING MASCORRO DPM
== END 2017-07-20 11:30 | disposition home or self-care (01) ==
LOC: SDC 08:07
PROVIDERS: ATTEND Podiatrist Foot & Ankle Surgery
DX: L97.529 Non-pressure chronic ulcer of other part of left foot with unspecified severity (principal); M21.6X2 Other acquired deformities of left foot; M89.9 Disorder of bone, unspecified; I10 Essential (primary) hypertension; E78.5 Hyperlipidemia, unspecified; E11.40 Type 2 diabetes mellitus with diabetic neuropathy, unspecified; Z79.84 Long term (current) use of oral hypoglycemic drugs; Z79.899 Other long term (current) drug therapy; Z88.0 Allergy status to penicillin; Z88.1 Allergy status to other antibiotic agents
CPT/HCPCS: 82962

== ENCOUNTER 2017-08-12 07:40 | Day surgery (SDC) | payer MEDICARE ==
[~2017-08-12] VITALS: Ht 182.9 cm; Wt 106.6 kg
[2017-08-12] VITALS (15 sets, daily range): BP systolic 97–134; BP diastolic 51–80
[~2017-08-12 07:40] MED LIST changes: +SILV20CR14 TP
[2017-08-12] MEDS ORDERED: LIDOCAINE 1% INJ 50 ML (XYLOCAINE) VIAL ONE (07:42)
[2017-08-12] MEDS ORDERED: HEParin (CATH LAB) 2,000 ML IV ONE (07:42)
[2017-08-12] MEDS ORDERED: NS IV 1000 ML 1,000 ML ONE ×2 (07:42→10:53)
[2017-08-12 08:08] LABS: HEMOGLOBIN 13.9 G/DL (13.3-17.7); MEAN PLATELET VOLUME 8.9 FL (7.4-10.4); RED BLOOD COUNT 3.46 10^6/uL (4.35-5.85); RED CELL DISTRIBUTION WIDTH 13.9 % (10.0-14.5); WHITE BLOOD COUNT 6.7 10^3/uL (4.3-11.0)
[2017-08-12] MEDS: NS IV 1000 ML 1,000 ML IV SCH ×3 (08:08→13:39)
--- NOTE | 2017-08-12 08:13 | Cardiac Procedure Note-CS/ASA ---
Pre-Procedure Note Pre-Op Procedure Note H&P Reviewed The H&P was reviewed, patient examined and no changes noted. Date H&P Reviewed: Aug 12, 2017 Time H&P Reviewed: 08:13 Conscious Sedation Pre-Proced Time Reviewed: 08:13 ASA Class: 3 Airway Mallampati Classification: (little shell tribe appropriate class) I. II. III, IV Lungs Heart ASA score ASA 1: a normal healthy patient ASA 2: a patient with a mild systemic disease (mid diabetes, controlled hypertension, obesity x ASA 3: a patient with a severe systemic disease that limits activity (angina , COPD, prior Myocardial infarction) ASA 4: a patient with an incapacitating disease that is a constant threat to life (CHF, renal failure) ASA 5: a moribund patient not expected to survive 24 hrs. (ruptured aneurysm) ASA 6: a declared brain patient whose organs are being harvested. For emergent operations, add the letter E after the classification Grade 3 Sedation Plan: Analgesia, Amnesia, Plan communicated to team members, Discussed options with patient/fam, Discussed risks with patient/fam Note The patient is an appropriate candidate to undergo the planned procedure, sedation, and anesthesia. The patient immediately re-assessed prior to indication. TIN LAYNE MD Aug 12, 2017 08:13
--- NOTE | 2017-08-12 08:20 | Diagnostic Imaging Report ---
INDICATION: Hypertension, preop evaluation. COMPARISON: 11/07/2015. FINDINGS: Visible lungs are clear. Please note the posterior lower lobes are poorly evaluated by portable radiography. No pleural effusion or pneumothorax. Stable cardiomegaly. Peripherally calcified focus in the left paratracheal space is unchanged and benign in nature. IMPRESSION: Stable cardiomegaly without acute cardiopulmonary process by portable radiography. Dictated by: Dictated on workstation # [id number]
[2017-08-12 08:27] LABS: PROTHROMBIN TIME PATIENT 13.2 SEC (12.2-14.7)
[2017-08-12 08:38] LABS: ALANINE AMINOTRANSFERASE 18 U/L (0-55); ALBUMIN 3.9 GM/DL (3.2-4.5); ALKALINE PHOSPHATASE 53 U/L (40-136); BUN/CREATININE RATIO 19; CALCIUM 9.4 MG/DL (8.5-10.1); CARBON DIOXIDE 26 MMOL/L (21-32); CHLORIDE 104 MMOL/L (98-107); CHOLESTEROL 120 MG/DL (< 200); CREATININE SERUM 0.86 MG/DL (0.60-1.30); GFR ESTIMATED > 60; GLUCOSE 179 MG/DL (70-105); HDL CHOLESTEROL 47 MG/DL (40-60); POTASSIUM 4.8 MMOL/L (3.6-5.0); SODIUM 138 MMOL/L (135-145); TOTAL PROTEIN 7.1 GM/DL (6.4-8.2); TRIGLYCERIDES 80 MG/DL (<150); VLDL CHOLESTEROL 16 MG/DL (5-40)
[2017-08-12] MEDS ORDERED: ASPI325T32 PO (08:41)
[2017-08-12] MEDS ORDERED: MIDAZOLAM 5 MG/5 ML (VERSED) VIAL ONE (09:44)
[2017-08-12] MEDS ORDERED: fentaNYL INJECTION 100 MCG/2 ML AMP ONE (09:44)
[2017-08-12] MEDS ORDERED: NITROGLYCERIN DRIP 25 MG/D5W 0 ML IV ONE (10:14)
[2017-08-12] MEDS ORDERED: HEParin 1000 UNIT/ML (10ML VIAL) FOR BOLUS ONE (10:14)
[2017-08-12] MEDS ORDERED: ATROPINE INJECTION 1 MG/10 ML SYR (ABBOTT) ONE (11:19)
[2017-08-12] MEDS ORDERED: PATIENT MAY USE OWN MEDS, ALL PO SCH (11:30)
--- NOTE | 2017-08-12 11:30 | Peripheral Report ---
Peripheral Report Physician (s)/Blindstitch Machine Operator (s) Physician TIN LAYNE MD Pre-Procedure Diagnosis Pre-Procedure Diagnosis: Exostosis left 3rd metatarsal, Chronic Ulceration left foot Post-Procedure Note Procedure Start Date: Aug 12, 2017 Name of Procedure: Abdominal aortogram Bilateral lower extremity runoff Third order Findings/Procedure Note PROCEDURE NOTE: After explaining the procedure to the patient, all pros and cons were explained, all questions were answered. The patient signed the consent and then she was placed on the cardiac catheterization laboratory. The patient was placed on the cardiac catheterization laboratory. Groin was prepped SL fashion local anesthesia was used. Sheath placed in the right femoral artery Rim catheter then IM catheter was used to cross over, Glidewire was advanced then angled straight catheter was advanced to the mid SFA runoff to the left lower extremity was done then it was exchange to Navicross catheter, advanced to the peroneal artery and selective angiogram with manual injection the peroneal artery was done. I pulled back the catheter and attempted multiple times to advance to the anterior tibial artery without success. The catheter was removed, multiple catheter were used. Multiple wires were used. Pigtail catheter advanced to the abdominal aorta and abdominal aortogram was done. Runoff to the right lower extremity was done through the sheath down to the trifurcation. 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 Left lower extremity: Diffuse atherosclerotic disease at the femoral artery, SFA , the peroneal artery is patent down to the ankle giving collaterals at the ankle level, posterior tibial artery is known to be occluded and still occluded. The anterior tibial artery is totally occluded, no collateral filling distally. No flow beyond the proximal portion. Patient had previous attempt open that artery that was unsuccessful. CONCLUSIONS: 1. 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 The peroneal arteries that had balloon angioplasty done last year still patent down to the ankle giving some collaterals below the ankle. 2. On the right side total occlusion of the anterior and posterior tibial artery with severe disease at the peroneal artery 3. Tortuous iliac and common femoral arteries bilaterally with slow flow, diffuse atherosclerotic disease DISCUSSION AND RECOMMENDATIONS: Patient has severe disease, previously the peroneal artery on the left lower extremity was severely diseased that was intervened on and is still patent with good flow distally. The anterior tibial artery and posterior tibial artery has been occluded for the past year, did not change. Patient had attempt for intervention of the anterior tibial artery that has failed in the past. There is no target vessels seen. Medical therapy is recommended Anesthesia Type: Conscious Sedation Estimated blood loss (mL): 15 ml Contrast Amount: 53 ml Total Radiation Dose: 739 mGy Post-Procedure Diagnosis Post-operative diagnosis: Nonhealing foot ulcer Peripheral arterial disease Hypertension Hyperlipidemia TIN LAYNE MD Aug 12, 2017 11:30
[2017-08-12] MEDS ORDERED: SILV20CR14 TP (14:47)
[2017-08-12] MEDS ORDERED: glipiZIDE XL 10 MG (GLUCOTROL XL) TAB PO SCH (17:00)
[2017-08-12] MEDS ORDERED: OMEGA 3 (FISH OIL) 1000 MG CAP PO SCH (21:00)
[2017-08-12] MEDS ORDERED: GABAPENTIN 400 MG (NEURONTIN) CAP PO SCH (21:00)
[2017-08-12] MEDS ORDERED: ATORVASTATIN 10 MG (LIPITOR) TABLET PO SCH (21:00)
[2017-08-12] MEDS ORDERED: HYDROXYUREA 500 MG CAP (HYDREA) PO SCH (21:00)
[2017-08-13 00:22] VITALS: BP 92/48
[2017-08-13 01:00] VITALS: BP 102/57
[2017-08-13] MEDS: NS IV 1000 ML 1,000 ML IV SCH (01:17)
[2017-08-13 03:00] VITALS: BP 111/65
[2017-08-13 05:00] VITALS: BP 103/54
[2017-08-13 07:59] VITALS: BP 101/44
[2017-08-13] MEDS ORDERED: MULTIVIT W/MINERALS TAB (THERAGRAN M) PO SCH (08:00)
--- NOTE | 2017-08-13 08:53 | Cardiology Progress Note ---
Subjective Date Seen by Provider: Aug 13, 2017 Time Seen by Provider: 08:49 Subjective/Events-last exam Patient is in bed, no new complaint. Asking to go home. Denies any CP or dyspnea. Review of Systems General: No Chills, No Night Sweats, No Fatigue, No Malaise, No Appetite, No Other HEENT: No Head Aches, No Visual Changes, No Eye Pain, No Ear Pain, No Dysphasia , No Sinus Congestion, No Post Nasal Drip, No Sore Throat, No Other Pulmonary: No Dyspnea, No Cough, No Pleuritic Chest Pain, No Other Cardiovascular: No: Chest Pain, Palpitations, Orthopnea, Paroxysmal Noc. Dyspnea, Edema, Lt Headedness, Other Gastrointestinal: No: Nausea, Vomiting, Abdominal Pain, Diarrhea, Constipation , Melena, Hematochezia, Other Genitourinary: No Dysuria, No Frequency, No Incontinence, No Hematuria, No Retention, No Other Musculoskeletal: No: other, neck pain, shoulder pain, arm pain, back pain, hand pain, leg pain, foot pain Neurological: No: Weakness, Numbness, Incoordination, Change in speech, Confusion, Seizures, Other Objective-Cardiology Exam Last Set of Vital Signs Vital Signs 08/12/17 08/13/17 08/13/17 15:00 01:00 07:59 Temp 97.9 Pulse 77 Resp 20 B/P (MAP) 101/44 (63) Pulse Ox 98 O2 Delivery Room Air O2 Flow Rate 2.00 Capillary Refill : Less Than 3 Seconds I&O Intake and Output 08/13/17 00:00 Intake Total 2800 ml Output Total 100 ml Balance 2700 ml Intake Oral 800 ml IV Total 2000 ml Output Urine Total 100 ml # Voids 1 # Bowel Movements 1 General: Alert, Oriented X3, Cooperative HEENT: Atraumatic, PERRLA Neck: Supple, No JVD, No Thyromegaly Lungs: Clear to Auscultation, Normal Air Movement Heart: Regular Rate, Normal S1, Normal S2, No Murmurs Abdomen: Normal Bowel Sounds, Soft, No Tenderness, No Hepatosplenomegaly, No Masses Extremities: No Clubbing, No Cyanosis, No Edema, Normal Pulses, No Tenderness/ Swelling Skin: No Rashes, No Breakdown, No Significant Lesion Neuro: Normal Gait, Normal Speech, Strength at 5/5 X4 Ext, Normal Tone, Sensation Intact Psych/Mental Status: Mental Status NL, Mood NL A/P-Cardiology Admission Diagnosis PAD SILVANO HTN DM Assessment/Plan Peripheral arterial disease, nonhealing ulcer on the left foot, history of amputation of the left foot. Status post peripheral angiogram on July 23, 2015 revealing total occlusion of ant tibial artery and peroneal artery. Single vessel runoff to leg. Severe stenosis at prox and mid posterior tibial artery. Successful balloon angioplasty to posterior tibial artery reducing it to 60 percent stenosis. On the right side, patient returned for intervention on August 01, 2015 he has total occlusion of anterior tibial artery, underwent angioplasty to the proximal portion with some improvement at the proximal portion with collateral filling the distal portion, he has total occlusion of the posterior tibial artery with mild disease at the right SFA. Most recent peripheral angiogram done November 07, 2015 with total occlusion of the left anterior tibial and posterior tibial, severe disease at the distal peroneal artery is giving collaterals down at the level. Successful balloon angioplasty. 2 segments of severe stenosis with reduction of proximal segment to 0 residual stenosis, distal segment and 30 percent residual stenosis. Most recent peripheral angiogram done 08/12/17 revealed: 1. 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 The peroneal arteries that had balloon angioplasty done last year still patent down to the ankle giving some collaterals below the ankle. 2. On the right side total occlusion of the anterior and posterior tibial artery with severe disease at the peroneal artery 3. Tortuous iliac and common femoral arteries bilaterally with slow flow, diffuse atherosclerotic disease Polycythemia vera, diagnosed recently, started on Hydrea, followed and managed by Dr. Sotelo, had a long discussion with the patient and his and with Dr. Dumont on a speaker phone explaining that the peripheral ulcer could be due to Hydrea by we have to rule out extensive peripheral arterial disease which already known to be present. Multiple risk factors for coronary artery disease, abnormal EKG with poor R- wave progression V1 through V3. Stress test done in June 2015 revealed no ischemia or infarct, 2-D echocardiogram within normal limits. Continue to monitor at this time Severe carotid stenosis on the right 60-79 percent, he was referred to Dr. Atkins at [place] [facility] who recommended monitoring due to the fact that he is asymptomatic and the stenosis is less than 80 percent ,continue to monitor. Hypertension, controlled. Continue monitor blood pressure/heart rate. 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 VU ALSTON Aug 13, 2017 08:53
[2017-08-13] MEDS ORDERED: meTOprolol TARTRATE 25 MG (LOPRESSOR) TABLET PO SCH (09:00)
[2017-08-13] MEDS ORDERED: lisINopril 20 MG (ZESTRIL) TAB PO SCH (09:00)
[2017-08-13] MEDS ORDERED: ASPIRIN E.C. 325 MG (ECOTRIN) TABLET PO SCH (09:00)
[2017-08-13] MEDS ORDERED: SILVER SULFADIAZINE 400 GM CREAM TP SCH (09:00)
[2017-08-13] MEDS ORDERED: CLOPIDOGREL 75 MG (PLAVIX) TABLET PO SCH (09:00)
--- NOTE | 2017-08-13 12:07 | Cardiology Progress Note ---
Subjective Date Seen by Provider: Aug 13, 2017 Time Seen by Provider: 08:00 Subjective/Events-last exam Patient was seen at bedside, laying down comfortably, groin is healing well. Denied any chest pain. Review of Systems General: No Chills, No Night Sweats, No Fatigue, No Malaise, No Appetite, No Other HEENT: No Head Aches, No Visual Changes, No Eye Pain, No Ear Pain, No Dysphasia , No Sinus Congestion, No Post Nasal Drip, No Sore Throat, No Other Pulmonary: No Dyspnea, No Cough, No Pleuritic Chest Pain, No Other Cardiovascular: No: Chest Pain, Palpitations, Orthopnea, Paroxysmal Noc. Dyspnea, Edema, Lt Headedness, Other Gastrointestinal: No: Nausea, Vomiting, Abdominal Pain, Diarrhea, Constipation , Melena, Hematochezia, Other Objective-Cardiology Exam Last Set of Vital Signs Vital Signs 08/12/17 08/13/17 08/13/17 08/13/17 15:00 01:00 07:59 09:00 Temp 97.9 Pulse 77 Resp 20 B/P (MAP) 101/44 (63) Pulse Ox 98 O2 Delivery Room Air O2 Flow Rate 2.00 Capillary Refill : Less Than 3 Seconds I&O Intake and Output 08/13/17 00:00 Intake Total 2800 ml Output Total 100 ml Balance 2700 ml Intake Oral 800 ml IV Total 2000 ml Output Urine Total 100 ml # Voids 1 # Bowel Movements 1 General: Alert, Oriented X3, Cooperative HEENT: Atraumatic, PERRLA Neck: Supple, No JVD, No Thyromegaly Lungs: Clear to Auscultation, Normal Air Movement Heart: Regular Rate, Normal S1, Normal S2, No Murmurs Abdomen: Normal Bowel Sounds, Soft, No Tenderness, No Hepatosplenomegaly, No Masses Extremities: No Clubbing, No Cyanosis, No Edema, Normal Pulses, No Tenderness/ Swelling Skin: No Rashes, No Breakdown, No Significant Lesion Neuro: Normal Gait, Normal Speech, Strength at 5/5 X4 Ext, Normal Tone, Sensation Intact Psych/Mental Status: Mental Status NL, Mood NL A/P-Cardiology Admission Diagnosis PAD SILVANO HTN DM Assessment/Plan Peripheral arterial disease, nonhealing ulcer on the left foot, history of amputation of the left foot. Status post peripheral angiogram on July 23, 2015 revealing total occlusion of ant tibial artery and peroneal artery. Single vessel runoff to leg. Severe stenosis at prox and mid posterior tibial artery. Successful balloon angioplasty to posterior tibial artery reducing it to 60 percent stenosis. On the right side, patient returned for intervention on August 01, 2015 he has total occlusion of anterior tibial artery, underwent angioplasty to the proximal portion with some improvement at the proximal portion with collateral filling the distal portion, he has total occlusion of the posterior tibial artery with mild disease at the right SFA. Most recent peripheral angiogram done November 07, 2015 with total occlusion of the left anterior tibial and posterior tibial, severe disease at the distal peroneal artery is giving collaterals down at the level. Successful balloon angioplasty. 2 segments of severe stenosis with reduction of proximal segment to 0 residual stenosis, distal segment and 30 percent residual stenosis. Most recent peripheral angiogram done 08/12/17 revealed: 1. 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 The peroneal arteries that had balloon angioplasty done last year still patent down to the ankle giving some collaterals below the ankle. 2. On the right side total occlusion of the anterior and posterior tibial artery with severe disease at the peroneal artery 3. Tortuous iliac and common femoral arteries bilaterally with slow flow, diffuse atherosclerotic disease At this point I do not consider that the patient is amendable for any further percutaneous intervention. Does not have any distal target for the anterior tibial or posterior tibial artery for intervention. Conservative management is recommended. Polycythemia vera, diagnosed recently, started on Hydrea, followed and managed by Dr. Sotelo, had a long discussion with the patient and his and with Dr. Dumont on a speaker phone explaining that the peripheral ulcer could be due to Hydrea by we have to rule out extensive peripheral arterial disease which already known to be present. Multiple risk factors for coronary artery disease, abnormal EKG with poor R- wave progression V1 through V3. Stress test done in June 2015 revealed no ischemia or infarct, 2-D echocardiogram within normal limits. Continue to monitor at this time Severe carotid stenosis on the right 60-79 percent, he was referred to Dr. Atkins at [place] [facility] who recommended monitoring due to the fact that he is asymptomatic and the stenosis is less than 80 percent ,continue to monitor. Hypertension, controlled. Continue monitor blood pressure/heart rate. 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 TIN LAYNE MD Aug 13, 2017 12:07
== END 2017-08-13 10:20 | disposition home or self-care (01) ==
LOC: CATH 07:40 → ICU 12:27 → CATH 08-13 10:20
PROVIDERS: ATTEND Internal Medicine Cardiovascular Disease
DX: L97.529 Non-pressure chronic ulcer of other part of left foot with unspecified severity (principal); M89.9 Disorder of bone, unspecified; I73.9 Peripheral vascular disease, unspecified; I10 Essential (primary) hypertension; E78.5 Hyperlipidemia, unspecified; E11.40 Type 2 diabetes mellitus with diabetic neuropathy, unspecified; Z11.2 Encounter for screening for other bacterial diseases; Z88.1 Allergy status to other antibiotic agents; Z88.8 Allergy status to other drugs, medicaments and biological substances; D45 Polycythemia vera; Z79.899 Other long term (current) drug therapy; Z87.891 Personal history of nicotine dependence
CPT/HCPCS: 36415; 71045; 75625; 75716; 80053; 80061; 82962; 85027; 85610; 85730; 87081; 93005

== ENCOUNTER 2017-10-14 10:27 | Outpatient (RCR) | payer MEDICARE ==
[2017-08-04 10:55] LABS: BASOPHILS % (AUTO) 1 % (0-10); EOSINOPHILS # (AUTO) 0.1 10^3/uL (0.0-0.3); EOSINOPHILS % (AUTO) 1 % (0-10); HEMATOCRIT 37 % (40-54); HEMOGLOBIN 13.3 G/DL (13.3-17.7); LYMPHOCYTES # (AUTO) 1.7 X 10^3 (1.0-4.0); LYMPHOCYTES % (AUTO) 19 % (12-44); MEAN CORPUSCULAR HEMOGLOBIN 40 PG (25-34); MEAN CORPUSCULAR HGB CONC 36 G/DL (32-36); MEAN CORPUSCULAR VOLUME 110 FL (80-99); MEAN PLATELET VOLUME 9.2 FL (7.4-10.4); MONOCYTES # (AUTO) 0.8 X 10^3 (0.0-1.0); MONOCYTES % (AUTO) 9 % (0-12); NEUTROPHILS # (AUTO) 6.2 X 10^3 (1.8-7.8); NEUTROPHILS % (AUTO) 71 % (42-75); PLATELET COUNT 236 10^3/uL (130-400); RED BLOOD COUNT 3.33 10^6/uL (4.35-5.85); RED CELL DISTRIBUTION WIDTH 14.4 % (10.0-14.5); WHITE BLOOD COUNT 8.8 10^3/uL (4.3-11.0)
[2017-08-04 11:17] LABS: ALANINE AMINOTRANSFERASE 16 U/L (0-55); ALBUMIN 3.8 GM/DL (3.2-4.5); ALKALINE PHOSPHATASE 53 U/L (40-136); BILIRUBIN,TOTAL 0.5 MG/DL (0.1-1.0); BUN/CREATININE RATIO 19; CALCIUM 9.4 MG/DL (8.5-10.1); CARBON DIOXIDE 24 MMOL/L (21-32); CHLORIDE 104 MMOL/L (98-107); CREATININE SERUM 1.09 MG/DL (0.60-1.30); GFR ESTIMATED > 60; GLUCOSE 166 MG/DL (70-105); POTASSIUM 4.9 MMOL/L (3.6-5.0); SODIUM 137 MMOL/L (135-145); TOTAL PROTEIN 6.8 GM/DL (6.4-8.2)
[2017-09-01 11:01] LABS: BASOPHILS % (AUTO) 0 % (0-10); EOSINOPHILS # (AUTO) 0.1 10^3/uL (0.0-0.3); EOSINOPHILS % (AUTO) 1 % (0-10); HEMATOCRIT 38 % (40-54); HEMOGLOBIN 13.7 G/DL (13.3-17.7); LYMPHOCYTES # (AUTO) 1.8 X 10^3 (1.0-4.0); LYMPHOCYTES % (AUTO) 25 % (12-44); MEAN CORPUSCULAR HEMOGLOBIN 40 PG (25-34); MEAN CORPUSCULAR HGB CONC 36 G/DL (32-36); MEAN CORPUSCULAR VOLUME 110 FL (80-99); MEAN PLATELET VOLUME 9.5 FL (7.4-10.4); MONOCYTES # (AUTO) 0.7 X 10^3 (0.0-1.0); MONOCYTES % (AUTO) 9 % (0-12); NEUTROPHILS # (AUTO) 4.8 X 10^3 (1.8-7.8); NEUTROPHILS % (AUTO) 65 % (42-75); PLATELET COUNT 181 10^3/uL (130-400); RED BLOOD COUNT 3.42 10^6/uL (4.35-5.85); RED CELL DISTRIBUTION WIDTH 14.3 % (10.0-14.5); WHITE BLOOD COUNT 7.4 10^3/uL (4.3-11.0)
[2017-09-01 11:22] LABS: ALANINE AMINOTRANSFERASE 15 U/L (0-55); ALBUMIN 3.9 GM/DL (3.2-4.5); ALKALINE PHOSPHATASE 52 U/L (40-136); BUN/CREATININE RATIO 20; CALCIUM 9.3 MG/DL (8.5-10.1); CARBON DIOXIDE 24 MMOL/L (21-32); CHLORIDE 105 MMOL/L (98-107); CREATININE SERUM 1.03 MG/DL (0.60-1.30); GFR ESTIMATED > 60; GLUCOSE 170 MG/DL (70-105); POTASSIUM 4.6 MMOL/L (3.6-5.0); SODIUM 139 MMOL/L (135-145); TOTAL PROTEIN 6.9 GM/DL (6.4-8.2)
[~2017-10-14 10:27] MED LIST changes: +ASPI325T32 PO; -METF500T4 PO; +METF500T5 PO
[2017-10-14 10:49] LABS: BASOPHILS # (AUTO) 0.1 10^3/uL (0.0-0.1); BASOPHILS % (AUTO) 1 % (0-10); EOSINOPHILS # (AUTO) 0.1 10^3/uL (0.0-0.3); EOSINOPHILS % (AUTO) 2 % (0-10); HEMATOCRIT 37 % (40-54); HEMOGLOBIN 13.3 G/DL (13.3-17.7); LYMPHOCYTES # (AUTO) 2.7 X 10^3 (1.0-4.0); LYMPHOCYTES % (AUTO) 32 % (12-44); MEAN CORPUSCULAR HEMOGLOBIN 40 PG (25-34); MEAN CORPUSCULAR HGB CONC 36 G/DL (32-36); MEAN CORPUSCULAR VOLUME 111 FL (80-99); MEAN PLATELET VOLUME 9.1 FL (7.4-10.4); MONOCYTES # (AUTO) 0.6 X 10^3 (0.0-1.0); MONOCYTES % (AUTO) 8 % (0-12); NEUTROPHILS # (AUTO) 4.8 X 10^3 (1.8-7.8); NEUTROPHILS % (AUTO) 58 % (42-75); PLATELET COUNT 187 10^3/uL (130-400); RED CELL DISTRIBUTION WIDTH 14.4 % (10.0-14.5); WHITE BLOOD COUNT 8.2 10^3/uL (4.3-11.0)
[2017-10-14 11:06] LABS: ALANINE AMINOTRANSFERASE 15 U/L (0-55); ALBUMIN 3.8 GM/DL (3.2-4.5); ALKALINE PHOSPHATASE 45 U/L (40-136); BILIRUBIN,TOTAL 0.5 MG/DL (0.1-1.0); BUN/CREATININE RATIO 24; CALCIUM 9.2 MG/DL (8.5-10.1); CARBON DIOXIDE 27 MMOL/L (21-32); CHLORIDE 108 MMOL/L (98-107); GFR ESTIMATED > 60; GLUCOSE 93 MG/DL (70-105); POTASSIUM 4.8 MMOL/L (3.6-5.0); SODIUM 141 MMOL/L (135-145); TOTAL PROTEIN 6.5 GM/DL (6.4-8.2)
== END 2017-11-02 | disposition home or self-care (01) ==
LOC: ONC 10:27
PROVIDERS: ATTEND Internal Medicine Hematology & Oncology
DX: D45 Polycythemia vera (principal); E11.9 Type 2 diabetes mellitus without complications; I73.9 Peripheral vascular disease, unspecified; L97.919 Non-pressure chronic ulcer of unspecified part of right lower leg with unspecified severity; Z79.84 Long term (current) use of oral hypoglycemic drugs; Z79.899 Other long term (current) drug therapy
CPT/HCPCS: 36415; 80053; 83615; 85025; 99213

== ENCOUNTER 2018-02-16 11:05 | Outpatient (RCR) | payer MEDICARE ==
[~2018-02-16 11:05] MED LIST changes: +METF-397 PO; -METF500T5 PO; -MINO50CA2 PO; +MINO50CA4 PO
== END 2018-02-26 | disposition home or self-care (01) ==
LOC: ONC 11:05
PROVIDERS: ATTEND Internal Medicine Hematology & Oncology
DX: D45 Polycythemia vera (principal); E11.9 Type 2 diabetes mellitus without complications; I73.9 Peripheral vascular disease, unspecified; L97.919 Non-pressure chronic ulcer of unspecified part of right lower leg with unspecified severity; Z79.84 Long term (current) use of oral hypoglycemic drugs; Z79.899 Other long term (current) drug therapy
CPT/HCPCS: 99213

== ENCOUNTER → 2018-05-17 | Outpatient (CLI) | payer MEDICARE ==
[2018-05-17 08:13] LABS: BASOPHILS % (AUTO) 1 % (0-10); EOSINOPHILS # (AUTO) 0.1 10^3/uL (0.0-0.3); EOSINOPHILS % (AUTO) 1 % (0-10); HEMATOCRIT 36 % (40-54); HEMOGLOBIN 12.8 G/DL (13.3-17.7); LYMPHOCYTES # (AUTO) 1.8 X 10^3 (1.0-4.0); LYMPHOCYTES % (AUTO) 27 % (12-44); MEAN CORPUSCULAR HEMOGLOBIN 40 PG (25-34); MEAN CORPUSCULAR HGB CONC 35 G/DL (32-36); MEAN CORPUSCULAR VOLUME 112 FL (80-99); MEAN PLATELET VOLUME 9.4 FL (7.4-10.4); MONOCYTES # (AUTO) 0.5 X 10^3 (0.0-1.0); MONOCYTES % (AUTO) 8 % (0-12); NEUTROPHILS # (AUTO) 4.2 X 10^3 (1.8-7.8); NEUTROPHILS % (AUTO) 63 % (42-75); PLATELET COUNT 168 10^3/uL (130-400); RED BLOOD COUNT 3.24 10^6/uL (4.35-5.85); RED CELL DISTRIBUTION WIDTH 13.8 % (10.0-14.5); WHITE BLOOD COUNT 6.7 10^3/uL (4.3-11.0)
[2018-05-17 08:31] LABS: ALANINE AMINOTRANSFERASE 16 U/L (0-55); ALBUMIN 3.8 GM/DL (3.2-4.5); ALKALINE PHOSPHATASE 47 U/L (40-136); BILIRUBIN,TOTAL 1.2 MG/DL (0.1-1.0); BUN/CREATININE RATIO 22; CARBON DIOXIDE 25 MMOL/L (21-32); CHLORIDE 106 MMOL/L (98-107); CREATININE SERUM 0.85 MG/DL (0.60-1.30); GFR ESTIMATED > 60; GLUCOSE 112 MG/DL (70-105); POTASSIUM 3.9 MMOL/L (3.6-5.0); SODIUM 139 MMOL/L (135-145); TOTAL PROTEIN 6.4 GM/DL (6.4-8.2)
== END ==
LOC: LAB 07:45
PROVIDERS: ATTEND Internal Medicine Hematology & Oncology
DX: Z51.81 Encounter for therapeutic drug level monitoring (principal); D45 Polycythemia vera; Z15.89 Genetic susceptibility to other disease; Z79.899 Other long term (current) drug therapy
CPT/HCPCS: 36415; 80053; 83615; 85025

== ENCOUNTER 2018-05-18 10:13 | Outpatient (RCR) | payer MEDICARE | END 2018-08-16 | disposition home or self-care (01) | LOC: ONC 10:13 | PROVIDERS: ATTEND Internal Medicine Hematology & Oncology | DX: D45 Polycythemia vera (principal); E11.51 Type 2 diabetes mellitus with diabetic peripheral angiopathy without gangrene; Z79.84 Long term (current) use of oral hypoglycemic drugs; Z79.899 Other long term (current) drug therapy | CPT/HCPCS: 99213 ==

== ENCOUNTER 2018-09-28 10:23 | Outpatient (RCR) | payer MEDICARE ==
[2018-08-17 10:39] LABS: BASOPHILS # (AUTO) 0.1 10^3/uL (0.0-0.1); BASOPHILS % (AUTO) 1 % (0-10); EOSINOPHILS # (AUTO) 0.1 10^3/uL (0.0-0.3); EOSINOPHILS % (AUTO) 2 % (0-10); HEMATOCRIT 38 % (40-54); LYMPHOCYTES % (AUTO) 28 % (12-44); MEAN CORPUSCULAR HEMOGLOBIN 41 PG (25-34); MEAN CORPUSCULAR HGB CONC 37 G/DL (32-36); MEAN CORPUSCULAR VOLUME 110 FL (80-99); MEAN PLATELET VOLUME 9.3 FL (7.4-10.4); MONOCYTES # (AUTO) 0.6 X 10^3 (0.0-1.0); MONOCYTES % (AUTO) 8 % (0-12); NEUTROPHILS # (AUTO) 4.6 X 10^3 (1.8-7.8); NEUTROPHILS % (AUTO) 63 % (42-75); PLATELET COUNT 182 10^3/uL (130-400); RED CELL DISTRIBUTION WIDTH 14.9 % (10.0-14.5); WHITE BLOOD COUNT 7.3 10^3/uL (4.3-11.0)
[2018-08-17 11:00] LABS: BILIRUBIN,TOTAL 0.8 MG/DL (0.1-1.0); CALCIUM 9.6 MG/DL (8.5-10.1); CREATININE SERUM 1.16 MG/DL (0.60-1.30); POTASSIUM 4.4 MMOL/L (3.6-5.0); TOTAL PROTEIN 6.9 GM/DL (6.4-8.2)
[2018-09-28 10:51] LABS: BASOPHILS % (AUTO) 1 % (0-10); EOSINOPHILS # (AUTO) 0.1 10^3/uL (0.0-0.3); EOSINOPHILS % (AUTO) 2 % (0-10); HEMATOCRIT 38 % (40-54); HEMOGLOBIN 13.4 G/DL (13.3-17.7); LYMPHOCYTES # (AUTO) 2.1 X 10^3 (1.0-4.0); LYMPHOCYTES % (AUTO) 32 % (12-44); MEAN CORPUSCULAR HEMOGLOBIN 40 PG (25-34); MEAN CORPUSCULAR HGB CONC 36 G/DL (32-36); MEAN CORPUSCULAR VOLUME 113 FL (80-99); MEAN PLATELET VOLUME 9.2 FL (7.4-10.4); MONOCYTES # (AUTO) 0.5 X 10^3 (0.0-1.0); MONOCYTES % (AUTO) 8 % (0-12); NEUTROPHILS # (AUTO) 3.8 X 10^3 (1.8-7.8); NEUTROPHILS % (AUTO) 58 % (42-75); PLATELET COUNT 167 10^3/uL (130-400); RED CELL DISTRIBUTION WIDTH 14.7 % (10.0-14.5); WHITE BLOOD COUNT 6.5 10^3/uL (4.3-11.0)
== END 2018-11-15 | disposition home or self-care (01) ==
LOC: ONC 10:23
PROVIDERS: ATTEND Internal Medicine Hematology & Oncology
DX: D45 Polycythemia vera (principal); E11.51 Type 2 diabetes mellitus with diabetic peripheral angiopathy without gangrene; Z79.84 Long term (current) use of oral hypoglycemic drugs; Z79.899 Other long term (current) drug therapy
CPT/HCPCS: 36415; 80053; 83615; 85025; 99213

== ENCOUNTER 2019-02-08 12:49 | Outpatient (RCR) | payer MEDICARE ==
[2018-11-16 13:40] LABS: BASOPHILS % (AUTO) 0 % (0-10); EOSINOPHILS # (AUTO) 0.1 10^3/uL (0.0-0.3); EOSINOPHILS % (AUTO) 2 % (0-10); HEMATOCRIT 37 % (40-54); HEMOGLOBIN 13.3 G/DL (13.3-17.7); LYMPHOCYTES # (AUTO) 1.8 X 10^3 (1.0-4.0); LYMPHOCYTES % (AUTO) 27 % (12-44); MEAN CORPUSCULAR HEMOGLOBIN 41 PG (25-34); MEAN CORPUSCULAR HGB CONC 36 G/DL (32-36); MEAN CORPUSCULAR VOLUME 113 FL (80-99); MEAN PLATELET VOLUME 9.1 FL (7.4-10.4); MONOCYTES # (AUTO) 0.5 X 10^3 (0.0-1.0); MONOCYTES % (AUTO) 7 % (0-12); NEUTROPHILS # (AUTO) 4.4 X 10^3 (1.8-7.8); NEUTROPHILS % (AUTO) 64 % (42-75); PLATELET COUNT 192 10^3/uL (130-400); WHITE BLOOD COUNT 6.8 10^3/uL (4.3-11.0)
[2018-11-16 14:00] LABS: ALANINE AMINOTRANSFERASE 13 U/L (0-55); ALBUMIN 3.9 GM/DL (3.2-4.5); ALKALINE PHOSPHATASE 46 U/L (40-136); BILIRUBIN,TOTAL 0.5 MG/DL (0.1-1.0); BUN/CREATININE RATIO 19; CALCIUM 9.5 MG/DL (8.5-10.1); CARBON DIOXIDE 23 MMOL/L (21-32); CHLORIDE 106 MMOL/L (98-107); CREATININE SERUM 1.02 MG/DL (0.60-1.30); GFR ESTIMATED > 60; GLUCOSE 174 MG/DL (70-105); POTASSIUM 4.6 MMOL/L (3.6-5.0); SODIUM 141 MMOL/L (135-145); TOTAL PROTEIN 6.7 GM/DL (6.4-8.2)
[2018-12-28 09:28] LABS: BASOPHILS % (AUTO) 0 % (0-10); EOSINOPHILS # (AUTO) 0.1 10^3/uL (0.0-0.3); EOSINOPHILS % (AUTO) 1 % (0-10); HEMATOCRIT 38 % (40-54); HEMOGLOBIN 13.2 G/DL (13.3-17.7); LYMPHOCYTES # (AUTO) 1.7 X 10^3 (1.0-4.0); LYMPHOCYTES % (AUTO) 24 % (12-44); MEAN CORPUSCULAR HEMOGLOBIN 39 PG (25-34); MEAN CORPUSCULAR HGB CONC 35 G/DL (32-36); MEAN CORPUSCULAR VOLUME 113 FL (80-99); MONOCYTES # (AUTO) 0.5 X 10^3 (0.0-1.0); MONOCYTES % (AUTO) 7 % (0-12); NEUTROPHILS # (AUTO) 4.8 X 10^3 (1.8-7.8); NEUTROPHILS % (AUTO) 67 % (42-75); PLATELET COUNT 189 10^3/uL (130-400); RED CELL DISTRIBUTION WIDTH 14.2 % (10.0-14.5); WHITE BLOOD COUNT 7.2 10^3/uL (4.3-11.0)
[~2019-02-08 12:49] MED LIST changes: -CYAN500T2 PO; +CYAN500T62 PO
[2019-02-08 13:02] LABS: BASOPHILS % (AUTO) 0 % (0-10); EOSINOPHILS # (AUTO) 0.1 10^3/uL (0.0-0.3); EOSINOPHILS % (AUTO) 1 % (0-10); HEMATOCRIT 36 % (40-54); HEMOGLOBIN 12.8 G/DL (13.3-17.7); LYMPHOCYTES # (AUTO) 1.7 X 10^3 (1.0-4.0); LYMPHOCYTES % (AUTO) 25 % (12-44); MEAN CORPUSCULAR HEMOGLOBIN 40 PG (25-34); MEAN CORPUSCULAR HGB CONC 35 G/DL (32-36); MEAN CORPUSCULAR VOLUME 114 FL (80-99); MEAN PLATELET VOLUME 9.3 FL (7.4-10.4); MONOCYTES # (AUTO) 0.6 X 10^3 (0.0-1.0); MONOCYTES % (AUTO) 8 % (0-12); NEUTROPHILS # (AUTO) 4.4 X 10^3 (1.8-7.8); NEUTROPHILS % (AUTO) 66 % (42-75); PLATELET COUNT 198 10^3/uL (130-400); RED CELL DISTRIBUTION WIDTH 14.3 % (10.0-14.5); WHITE BLOOD COUNT 6.7 10^3/uL (4.3-11.0)
[2019-02-08 13:24] LABS: ALANINE AMINOTRANSFERASE 15 U/L (0-55); ALBUMIN 3.9 GM/DL (3.2-4.5); ALKALINE PHOSPHATASE 53 U/L (40-136); BILIRUBIN,TOTAL 0.6 MG/DL (0.1-1.0); BUN/CREATININE RATIO 17; CALCIUM 9.3 MG/DL (8.5-10.1); CARBON DIOXIDE 25 MMOL/L (21-32); CHLORIDE 107 MMOL/L (98-107); CREATININE SERUM 1.09 MG/DL (0.60-1.30); GFR ESTIMATED > 60; GLUCOSE 170 MG/DL (70-105); SODIUM 143 MMOL/L (135-145); TOTAL PROTEIN 6.9 GM/DL (6.4-8.2)
== END 2019-02-14 | disposition home or self-care (01) ==
LOC: ONC 12:49
PROVIDERS: ATTEND Internal Medicine Hematology & Oncology
DX: D45 Polycythemia vera (principal); E11.51 Type 2 diabetes mellitus with diabetic peripheral angiopathy without gangrene; Z79.84 Long term (current) use of oral hypoglycemic drugs; Z79.899 Other long term (current) drug therapy
CPT/HCPCS: 36415; 80053; 83615; 85025; 99213

== ENCOUNTER 2019-05-10 12:31 | Outpatient (RCR) | payer MEDICARE ==
[2019-03-22 09:12] LABS: BASOPHILS % (AUTO) 1 % (0-10); EOSINOPHILS # (AUTO) 0.1 10^3/uL (0.0-0.3); EOSINOPHILS % (AUTO) 2 % (0-10); HEMATOCRIT 36 % (40-54); HEMOGLOBIN 12.7 G/DL (13.3-17.7); LYMPHOCYTES # (AUTO) 1.9 X 10^3 (1.0-4.0); LYMPHOCYTES % (AUTO) 26 % (12-44); MEAN CORPUSCULAR HEMOGLOBIN 40 PG (25-34); MEAN CORPUSCULAR HGB CONC 35 G/DL (32-36); MEAN CORPUSCULAR VOLUME 114 FL (80-99); MEAN PLATELET VOLUME 9.4 FL (7.4-10.4); MONOCYTES # (AUTO) 0.6 X 10^3 (0.0-1.0); MONOCYTES % (AUTO) 8 % (0-12); NEUTROPHILS # (AUTO) 4.7 X 10^3 (1.8-7.8); NEUTROPHILS % (AUTO) 64 % (42-75); PLATELET COUNT 173 10^3/uL (130-400); RED CELL DISTRIBUTION WIDTH 14.5 % (10.0-14.5); WHITE BLOOD COUNT 7.3 10^3/uL (4.3-11.0)
[2019-05-10 13:00] LABS: BASOPHILS % (AUTO) 1 % (0-10); EOSINOPHILS # (AUTO) 0.1 10^3/uL (0.0-0.3); EOSINOPHILS % (AUTO) 1 % (0-10); HEMATOCRIT 37 % (40-54); HEMOGLOBIN 13.5 G/DL (13.3-17.7); LYMPHOCYTES # (AUTO) 1.8 X 10^3 (1.0-4.0); LYMPHOCYTES % (AUTO) 23 % (12-44); MEAN CORPUSCULAR HEMOGLOBIN 41 PG (25-34); MEAN CORPUSCULAR HGB CONC 37 G/DL (32-36); MEAN CORPUSCULAR VOLUME 111 FL (80-99); MEAN PLATELET VOLUME 9.4 FL (7.4-10.4); MONOCYTES # (AUTO) 0.5 X 10^3 (0.0-1.0); MONOCYTES % (AUTO) 7 % (0-12); NEUTROPHILS # (AUTO) 5.2 X 10^3 (1.8-7.8); NEUTROPHILS % (AUTO) 68 % (42-75); PLATELET COUNT 204 10^3/uL (130-400); RED CELL DISTRIBUTION WIDTH 14.9 % (10.0-14.5); WHITE BLOOD COUNT 7.7 10^3/uL (4.3-11.0)
[2019-05-10 13:19] LABS: ALANINE AMINOTRANSFERASE 14 U/L (0-55); ALKALINE PHOSPHATASE 56 U/L (40-136); BILIRUBIN,TOTAL 0.5 MG/DL (0.1-1.0); BUN/CREATININE RATIO 17; CALCIUM 9.3 MG/DL (8.5-10.1); CARBON DIOXIDE 25 MMOL/L (21-32); CHLORIDE 104 MMOL/L (98-107); GFR ESTIMATED > 60; GLUCOSE 235 MG/DL (70-105); POTASSIUM 4.6 MMOL/L (3.6-5.0); SODIUM 137 MMOL/L (135-145)
== END 2019-06-20 | disposition home or self-care (01) ==
LOC: ONC 12:31
PROVIDERS: ATTEND Internal Medicine Hematology & Oncology
DX: D45 Polycythemia vera (principal); E11.51 Type 2 diabetes mellitus with diabetic peripheral angiopathy without gangrene; Z79.84 Long term (current) use of oral hypoglycemic drugs; Z79.899 Other long term (current) drug therapy
CPT/HCPCS: 36415; 80053; 82728; 83615; 85025; 99213

== ENCOUNTER 2019-09-20 09:10 | Outpatient (RCR) | payer MEDICARE ==
[2019-08-09 10:50] LABS: BASOPHILS # (AUTO) 0.1 10^3/uL (0.0-0.1); BASOPHILS % (AUTO) 1 % (0-10); EOSINOPHILS # (AUTO) 0.1 10^3/uL (0.0-0.3); EOSINOPHILS % (AUTO) 2 % (0-10); HEMATOCRIT 38 % (40-54); HEMOGLOBIN 14.3 G/DL (13.3-17.7); LYMPHOCYTES # (AUTO) 2.4 X 10^3 (1.0-4.0); LYMPHOCYTES % (AUTO) 28 % (12-44); MEAN CORPUSCULAR HEMOGLOBIN 41 PG (25-34); MEAN CORPUSCULAR HGB CONC 37 G/DL (32-36); MEAN CORPUSCULAR VOLUME 109 FL (80-99); MEAN PLATELET VOLUME 9.7 FL (7.4-10.4); MONOCYTES # (AUTO) 0.7 X 10^3 (0.0-1.0); MONOCYTES % (AUTO) 8 % (0-12); NEUTROPHILS # (AUTO) 5.4 X 10^3 (1.8-7.8); NEUTROPHILS % (AUTO) 62 % (42-75); PLATELET COUNT 197 10^3/uL (130-400); RED CELL DISTRIBUTION WIDTH 14.6 % (10.0-14.5); WHITE BLOOD COUNT 8.7 10^3/uL (4.3-11.0)
[2019-08-09 11:08] LABS: ALANINE AMINOTRANSFERASE 19 U/L (0-55); ALBUMIN 3.9 GM/DL (3.2-4.5); ALKALINE PHOSPHATASE 55 U/L (40-136); BILIRUBIN,TOTAL 0.7 MG/DL (0.1-1.0); BUN/CREATININE RATIO 14; CALCIUM 9.4 MG/DL (8.5-10.1); CARBON DIOXIDE 25 MMOL/L (21-32); CHLORIDE 105 MMOL/L (98-107); CREATININE SERUM 1.11 MG/DL (0.60-1.30); GFR ESTIMATED > 60; GLUCOSE 130 MG/DL (70-105); POTASSIUM 4.6 MMOL/L (3.6-5.0); SODIUM 139 MMOL/L (135-145); TOTAL PROTEIN 7.1 GM/DL (6.4-8.2)
[~2019-09-20 09:10] MED LIST changes: +METF500T19 PO; -METF500T8 PO
[2019-09-20 09:23] LABS: BASOPHILS % (AUTO) 1 % (0-10); EOSINOPHILS # (AUTO) 0.1 10^3/uL (0.0-0.3); EOSINOPHILS % (AUTO) 1 % (0-10); HEMATOCRIT 38 % (40-54); HEMOGLOBIN 13.8 G/DL (13.3-17.7); LYMPHOCYTES # (AUTO) 1.9 X 10^3 (1.0-4.0); LYMPHOCYTES % (AUTO) 25 % (12-44); MEAN CORPUSCULAR HEMOGLOBIN 41 PG (25-34); MEAN CORPUSCULAR HGB CONC 36 G/DL (32-36); MEAN CORPUSCULAR VOLUME 113 FL (80-99); MEAN PLATELET VOLUME 9.8 FL (7.4-10.4); MONOCYTES # (AUTO) 0.7 X 10^3 (0.0-1.0); MONOCYTES % (AUTO) 8 % (0-12); NEUTROPHILS % (AUTO) 65 % (42-75); PLATELET COUNT 199 10^3/uL (130-400); RED CELL DISTRIBUTION WIDTH 14.8 % (10.0-14.5); WHITE BLOOD COUNT 7.7 10^3/uL (4.3-11.0)
== END 2019-11-07 | disposition home or self-care (01) ==
LOC: ONC 09:10
PROVIDERS: ATTEND Internal Medicine Hematology & Oncology
DX: D45 Polycythemia vera (principal); E11.51 Type 2 diabetes mellitus with diabetic peripheral angiopathy without gangrene; I10 Essential (primary) hypertension; E78.2 Mixed hyperlipidemia; Z79.84 Long term (current) use of oral hypoglycemic drugs; Z79.899 Other long term (current) drug therapy; Z15.89 Genetic susceptibility to other disease
CPT/HCPCS: 80053; 82728; 83615; 85025; 99213

== ENCOUNTER → 2020-02-08 | Outpatient (RCR) | payer MEDICARE ==
[2019-11-10 13:09] LABS: BASOPHILS # (AUTO) 0.1 10^3/uL (0.0-0.1); BASOPHILS % (AUTO) 1 % (0-10); EOSINOPHILS # (AUTO) 0.1 10^3/uL (0.0-0.3); EOSINOPHILS % (AUTO) 1 % (0-10); HEMATOCRIT 37 % (40-54); HEMOGLOBIN 13.2 G/DL (13.3-17.7); LYMPHOCYTES # (AUTO) 2.3 X 10^3 (1.0-4.0); LYMPHOCYTES % (AUTO) 27 % (12-44); MEAN CORPUSCULAR HEMOGLOBIN 40 PG (25-34); MEAN CORPUSCULAR HGB CONC 36 G/DL (32-36); MEAN CORPUSCULAR VOLUME 113 FL (80-99); MEAN PLATELET VOLUME 9.4 FL (7.4-10.4); MONOCYTES # (AUTO) 0.6 X 10^3 (0.0-1.0); MONOCYTES % (AUTO) 7 % (0-12); NEUTROPHILS # (AUTO) 5.3 X 10^3 (1.8-7.8); NEUTROPHILS % (AUTO) 64 % (42-75); PLATELET COUNT 209 10^3/uL (130-400); WHITE BLOOD COUNT 8.3 10^3/uL (4.3-11.0)
[2019-11-10 13:30] LABS: ALANINE AMINOTRANSFERASE 14 U/L (0-55); ALBUMIN 3.9 GM/DL (3.2-4.5); ALKALINE PHOSPHATASE 50 U/L (40-136); BILIRUBIN,TOTAL 0.6 MG/DL (0.1-1.0); BUN/CREATININE RATIO 18; CALCIUM 9.2 MG/DL (8.5-10.1); CARBON DIOXIDE 28 MMOL/L (21-32); CHLORIDE 104 MMOL/L (98-107); CREATININE SERUM 0.94 MG/DL (0.60-1.30); GFR ESTIMATED > 60; GLUCOSE 138 MG/DL (70-105); POTASSIUM 4.8 MMOL/L (3.6-5.0); SODIUM 139 MMOL/L (135-145)
[~2020-02-08] MED LIST changes: +METF-865 PO; -METF500T19 PO; +MULT-567 PO; -MULT1TAB69 PO
[2020-02-08 13:08] LABS: BASOPHILS % (AUTO) 1 % (0-10); EOSINOPHILS # (AUTO) 0.1 10^3/uL (0.0-0.3); EOSINOPHILS % (AUTO) 2 % (0-10); HEMATOCRIT 39 % (40-54); HEMOGLOBIN 13.6 G/DL (13.3-17.7); LYMPHOCYTES # (AUTO) 2.3 X 10^3 (1.0-4.0); LYMPHOCYTES % (AUTO) 31 % (12-44); MEAN CORPUSCULAR HEMOGLOBIN 40 PG (25-34); MEAN CORPUSCULAR HGB CONC 35 G/DL (32-36); MEAN CORPUSCULAR VOLUME 114 FL (80-99); MEAN PLATELET VOLUME 9.1 FL (7.4-10.4); MONOCYTES # (AUTO) 0.7 X 10^3 (0.0-1.0); MONOCYTES % (AUTO) 10 % (0-12); NEUTROPHILS # (AUTO) 4.3 X 10^3 (1.8-7.8); NEUTROPHILS % (AUTO) 58 % (42-75); PLATELET COUNT 208 10^3/uL (130-400); RED CELL DISTRIBUTION WIDTH 14.4 % (10.0-14.5); WHITE BLOOD COUNT 7.5 10^3/uL (4.3-11.0)
[2020-02-08 13:29] LABS: ALANINE AMINOTRANSFERASE 13 U/L (0-55); ALBUMIN 3.9 GM/DL (3.2-4.5); ALKALINE PHOSPHATASE 47 U/L (40-136); BILIRUBIN,TOTAL 0.7 MG/DL (0.1-1.0); BUN/CREATININE RATIO 18; CALCIUM 9.4 MG/DL (8.5-10.1); CARBON DIOXIDE 26 MMOL/L (21-32); CHLORIDE 104 MMOL/L (98-107); CREATININE SERUM 1.01 MG/DL (0.60-1.30); GFR ESTIMATED > 60; GLUCOSE 112 MG/DL (70-105); SODIUM 139 MMOL/L (135-145); TOTAL PROTEIN 7.2 GM/DL (6.4-8.2)
== END | disposition home or self-care (01) ==
LOC: ONC 11-10 12:55
PROVIDERS: ATTEND Internal Medicine Hematology & Oncology
DX: D45 Polycythemia vera (principal); E11.51 Type 2 diabetes mellitus with diabetic peripheral angiopathy without gangrene; I10 Essential (primary) hypertension; E78.2 Mixed hyperlipidemia; Z79.84 Long term (current) use of oral hypoglycemic drugs; Z79.899 Other long term (current) drug therapy; Z15.89 Genetic susceptibility to other disease
CPT/HCPCS: 80053; 83615; 85025; G0463; 99213

== ENCOUNTER → 2020-04-26 | Outpatient (CLI) | payer MEDICARE ==
[~2020-04-26] MED LIST changes: +ASPI-1238 PO; -ASPI-983 PO
[2020-04-26 13:28] LABS: BASOPHILS # (AUTO) 0.1 10^3/uL (0.0-0.1); BASOPHILS % (AUTO) 1 % (0-10); EOSINOPHILS # (AUTO) 0.1 10^3/uL (0.0-0.3); EOSINOPHILS % (AUTO) 1 % (0-10); HEMATOCRIT 39 % (40-54); LYMPHOCYTES # (AUTO) 2.1 10^3/uL (1.0-4.0); LYMPHOCYTES % (AUTO) 26 % (12-44); MEAN CORPUSCULAR HEMOGLOBIN 41 pg (25-34); MEAN CORPUSCULAR HGB CONC 36 g/dL (32-36); MEAN CORPUSCULAR VOLUME 114 fL (80-99); MEAN PLATELET VOLUME 9.8 fL (9.0-12.2); MONOCYTES # (AUTO) 0.5 10^3/uL (0.0-1.0); MONOCYTES % (AUTO) 7 % (0-12); NEUTROPHILS # (AUTO) 5.1 10^3/uL (1.8-7.8); NEUTROPHILS % (AUTO) 64 % (42-75); PLATELET COUNT 188 10^3/uL (130-400); WHITE BLOOD COUNT 7.9 10^3/uL (4.3-11.0)
[2020-04-26 13:44] LABS: ALANINE AMINOTRANSFERASE 13 U/L (0-55); ALBUMIN 3.9 GM/DL (3.2-4.5); ALKALINE PHOSPHATASE 57 U/L (40-136); BILIRUBIN,TOTAL 0.8 MG/DL (0.1-1.0); BUN/CREATININE RATIO 16; CALCIUM 9.1 MG/DL (8.5-10.1); CARBON DIOXIDE 23 MMOL/L (21-32); CHLORIDE 101 MMOL/L (98-107); CREATININE SERUM 1.09 MG/DL (0.60-1.30); GFR ESTIMATED > 60; GLUCOSE 296 MG/DL (70-105); POTASSIUM 4.4 MMOL/L (3.6-5.0); SODIUM 136 MMOL/L (135-145)
== END ==
LOC: EDSTATUS 02-09 13:18 → ONC 13:18
PROVIDERS: ATTEND Internal Medicine Hematology & Oncology
DX: Z51.81 Encounter for therapeutic drug level monitoring (principal); D45 Polycythemia vera; Z15.89 Genetic susceptibility to other disease; I25.10 Atherosclerotic heart disease of native coronary artery without angina pectoris; I10 Essential (primary) hypertension; E78.2 Mixed hyperlipidemia
CPT/HCPCS: 80053; 83615; 85025; G0463; 99213